=== PATIENT | male | born 1965 | race Caucasian/White ===

== ENCOUNTER 2019-01-15 01:28 | Inpatient (IN) | payer MEDICAID ==
[~2019-01-15] VITALS: Ht 188 cm; Wt 79.4 kg
--- NOTE | 2019-01-15 01:44 | Emergency Room Report ---
History of Present Illness General Chief Complaint: Edema Source: Patient, Medical Record Present Illness HPI Is a 53-year-old male story of CAD with previous stents. Also history of schizophrenia. [facility] He presents with chief complaint of swelling to the lower extremity. Staff noticed that yesterday. Pain only to the left lower extremity. Denies any other trauma. There was no noted history of DVT on the chart but patient is taking Xarelto for DVT. Allergies: Coded Allergies: No Known Allergies (Unverified , 01/15/19) Patient History Past Medical History: see triage record, old chart reviewed, HTN, IN, CAD Past Surgical History: other Pertinent Family History: none Social History: Reports: smoking Immunizations: other Reviewed Nursing Documentation: PMH: Agreed; PSxH: Agreed Review of Systems Eye: Denies: eye pain, blurred vision ENT: Denies: ear pain, nose congestion, throat swelling Respiratory: Denies: cough, shortness of breath Cardiovascular: Denies: chest pain, palpitations Gastrointestinal: Denies: abdominal pain, diarrhea, nausea, vomiting Musculoskeletal: Reports: muscle pain; Denies: back pain, joint pain Skin: Denies: rash Neurological: Denies: headache, numbness Endocrine: Denies: increased thirst, increased urine Hematologic/Lymphatic: Denies: easy bruising All Other Systems: negative except mentioned in HPI Physical Exam Vital Signs Date Time Temp Pulse Resp B/P (MAP) Pulse Ox O2 Delivery O2 Flow Rate FiO2 01/15/19 01:25 98.2 90 20 138/92 (107) 94 Room Air Vitals normal Sp02 EP Interpretation: reviewed, normal General Appearance: well appearing, no apparent distress, alert Head: normocephalic, atraumatic Eyes: bilateral eye PERRL, bilateral eye EOMI ENT: hearing grossly normal, normal pharynx Neck: full range of motion, supple, no meningismus Respiratory: chest non-tender, lungs clear, normal breath sounds Cardiovascular #1: regular rate, rhythm, no murmur Gastrointestinal: normal bowel sounds, non tender, no mass, no organomegaly, no bruit, non-distended Musculoskeletal: back normal, gait/station normal, normal range of motion, other - Edema to the left lower extremity from the calf to toes. No redness. No warmth. Psychiatric: mood/affect normal Medical Decision Making Diagnostic Impression: Primary Impression: Deep vein thrombosis (DVT) of left lower extremity Qualified Codes: I82.412 - Acute embolism and thrombosis of left femoral vein ER Course Presents with left lower extremity edema. He is positive for DVT. Patient is taking Xarelto for DVT prophylaxis. I will give him a dose of Lovenox here. No evidence of any fracture. No respiratory distress. 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
[2019-01-15 01:53] VITALS: BP 133/92
[2019-01-15] MEDS ORDERED: AMLODIPINE BESYL5 MG ORAL (01:54)
[2019-01-15] MEDS ORDERED: LISINOPRIL20 MG ORAL (01:54)
[2019-01-15] MEDS ORDERED: ATORVASTATIN CA80 MG ORAL (01:54)
[2019-01-15] MEDS ORDERED: TYLENOL EXTRA500 MG ORAL (01:54)
[2019-01-15] MEDS ORDERED: METOPROLOL SUCC50 MG ORAL (01:54)
[2019-01-15] MEDS ORDERED: FOLIC ACID1 MG ORAL (01:54)
[2019-01-15] MEDS ORDERED: LEXAPRO20 MG ORAL (01:54)
[2019-01-15] MEDS ORDERED: MULTIVITAMINS1 EAC2 ORAL (01:54)
[2019-01-15] MEDS ORDERED: DULCOLAX10 MG RC (01:54)
[2019-01-15] MEDS ORDERED: ISOSORBIDE MONO60 M1 PO (01:54)
[2019-01-15] MEDS ORDERED: MILK OF MA400 MG/51 ORAL (01:54)
[2019-01-15] MEDS ORDERED: DOCUSATE SODIU100 MG ORAL (01:54)
[2019-01-15] MEDS ORDERED: XARELTO20 MG ORAL (01:54)
[2019-01-15] MEDS ORDERED: TRAMADOL HCL50 MG ORAL (01:54)
[2019-01-15] MEDS ORDERED: HYDROCHLOROTHIA25 MG ORAL (01:54)
[2019-01-15] MEDS ORDERED: Enoxaparin 100mg Inj SUBQ ONE (02:30)
--- NOTE | 2019-01-15 02:39 | Diagnostic Imaging Report ---
Indication: Left lower extremity pain and swelling. Technique: Duplex Doppler imaging performed from the left common femoral vein to the popliteal vein. FINDINGS: There is occlusive thrombus demonstrated within the entire left superficial femoral vein, with normal compressibility of the left common femoral vein and popliteal vein. Subcutaneous edema noted. IMPRESSION: Positive study showing DVT in the left superficial femoral vein. Critical value communication. Findings were discussed via telephone with In the emergency department by the stat rad physician Dr. Loya 01/15/2019, at 02:46.
[2019-01-15 02:54] LABS: BASOPHILS % (AUTO) 0.9 % (0.0-2.0); EOSINOPHILS % (AUTO) 1.2 % (0.0-3.0); HEMATOCRIT 47.3 % (42.0-52.0); HEMOGLOBIN 16.1 G/DL (14.2-18.0); LYMPHOCYTES % (AUTO) 26.4 % (20.0-45.0); MEAN CORPUSCULAR VOLUME 89 FL (80-99); MONOCYTES % (AUTO) 8.2 % (1.0-10.0); NEUTROPHILS % (AUTO) 63.3 % (45.0-75.0); PLATELET COUNT 207 K/UL (150-450); RED BLOOD COUNT 5.34 M/UL (4.70-6.10); RED CELL DISTRIBUTION WIDTH 13.1 % (11.6-14.8); WHITE BLOOD COUNT 10.3 K/UL (4.8-10.8)
[2019-01-15 03:07] LABS: ANION GAP 10 mmol/L (5-15); BLOOD UREA NITROGEN 12 mg/dL (7-18); CALCIUM 9.8 MG/DL (8.5-10.1); CARBON DIOXIDE 25 MMOL/L (21-32); CHLORIDE 108 MMOL/L (98-107); CREATININE 0.9 MG/DL (0.55-1.30); SODIUM 143 MMOL/L (136-145)
--- NOTE | 2019-01-15 05:11 | History and Physical ---
History of Present Illness General Date patient seen: Jan 15, 2019 Time patient seen: 05:00 Reason for Hospitalization: Edema Present Illness HPI patient with known CAD with previous stents, stroke with left deficit, history of schizophrenia. [facility]. earlier call from sn[facility] and requested for new left leg swelling. He presents with chief complaint of swelling to the lower extremity. Staff noticed that yesterday. Pain only to the left lower extremity. Denies any other trauma. There was no noted history of DVT on the chart but patient is taking Xarelto for DVT.. no chest pain/dyspnea. patient does not like this snf Allergies: Coded Allergies: No Known Allergies (Unverified , 01/15/19) Medication History Scheduled Amlodipine Besylate* (Amlodipine Besylate*), 5 MG ORAL DAILY, (Reported) Atorvastatin Calcium* (Lipitor*), 80 MG ORAL BEDTIME, (Reported) Docusate Sodium* (Docusate Sodium*), 100 MG ORAL DAILY, (Reported) Escitalopram Oxalate* (Lexapro*), 20 MG ORAL DAILY, (Reported) Escitalopram Oxalate* (Lexapro*), 20 MG ORAL DAILY, (Reported) Folic Acid* (Folic Acid*), 1 MG ORAL DAILY, (Reported) Hydrochlorothiazide* (Hydrochlorothiazide*), 25 MG ORAL DAILY, (Reported) Lisinopril (Lisinopril*), 20 MG ORAL DAILY, (Reported) Magnesium Hydroxide* (Milk Of Magnesia*), 30 ML ORAL DAILY, (Reported) Metoprolol Succinate* (Metoprolol Succinate*), 50 MG ORAL DAILY, (Reported) Multivitamins* (Multivitamins*), 1 TAB ORAL DAILY, (Reported) Scheduled PRN Acetaminophen* (Tylenol Extra Strength*), 325 MG ORAL Q6H PRN for Mild Pain/ Temp > 100.5, (Reported) Tramadol Hcl* (Ultram*), 50 MG ORAL Q8HR PRN for For Pain, (Reported) Miscellaneous Medications Bisacodyl (Dulcolax), 10 MG RC, (Reported) Isosorbide Mononitrate (Isosorbide Mononitrate Er), 60 MG PO, (Reported) Rivaroxaban (Xarelto), 20 MG ORAL, (Reported) Patient History History Provided By: Patient Healthcare decision maker Resuscitation status Advanced Directive on File Review of Systems Constitutional: Reports: no symptoms Eye: Reports: no symptoms ENT: Reports: no symptoms Respiratory: Reports: no symptoms Cardiovascular: Reports: no symptoms Gastrointestinal: Reports: no symptoms Genitourinary: Reports: no symptoms Musculoskeletal: Reports: see HPI Skin: Reports: no symptoms Psychiatric: Reports: see HPI Neurological: Reports: no symptoms Endocrine: Reports: no symptoms Hematologic/Lymphatic: Reports: see HPI Physical Exam General Appearance: WD/WN, no apparent distress, alert, alert oriented x3 HEENT: normocephalic, atraumatic, anicteric, mucous membranes moist Neck: non-tender, supple Respiratory/Chest: lungs clear Cardiovascular/Chest: normal rate, regular rhythm, regularly irregular, no gallop/murmur, no JVD Abdomen: non tender, soft, no organomegaly Extremities: other Skin Exam: warm/dry Neurologic: oriented x 3, other Physical Exam Narrative left side stroke deficit. left leg swelling ++ Last 24 Hour Vital Signs Date Time Temp Pulse Resp B/P (MAP) Pulse Ox O2 Delivery O2 Flow Rate FiO2 01/15/19 01:53 98.2 90 16 133/92 96 Room Air 01/15/19 01:53 90 16 Room Air 01/15/19 01:25 98.2 90 20 138/92 (107) 94 Room Air Laboratory Tests Test 01/15/19 02:30 White Blood Count 10.3 K/UL (4.8-10.8) Red Blood Count 5.34 M/UL (4.70-6.10) Hemoglobin 16.1 G/DL (14.2-18.0) Hematocrit 47.3 % (42.0-52.0) Mean Corpuscular Volume 89 FL (80-99) Mean Corpuscular Hemoglobin 30.1 PG (27.0-31.0) Mean Corpuscular Hemoglobin Concent 33.9 G/DL (32.0-36.0) Red Cell Distribution Width 13.1 % (11.6-14.8) Platelet Count 207 K/UL (150-450) Mean Platelet Volume 7.6 FL (6.5-10.1) Neutrophils (%) (Auto) 63.3 % (45.0-75.0) Lymphocytes (%) (Auto) 26.4 % (20.0-45.0) Monocytes (%) (Auto) 8.2 % (1.0-10.0) Eosinophils (%) (Auto) 1.2 % (0.0-3.0) Basophils (%) (Auto) 0.9 % (0.0-2.0) Prothrombin Time 10.9 SEC (9.30-11.50) Prothromb Time International Ratio 1.0 (0.9-1.1) Activated Partial Thromboplast Time 33 SEC (23-33) Sodium Level 143 MMOL/L (136-145) Potassium Level 4.0 MMOL/L (3.5-5.1) Chloride Level 108 MMOL/L (98-107) H Carbon Dioxide Level 25 MMOL/L (21-32) Anion Gap 10 mmol/L (5-15) Blood Urea Nitrogen 12 mg/dL (7-18) Creatinine 0.9 MG/DL (0.55-1.30) Estimat Glomerular Filtration Rate > 60 mL/min (>60) Glucose Level 90 MG/DL (74-106) Calcium Level 9.8 MG/DL (8.5-10.1) Microbiology Date/Time Source Procedure Growth Status 01/15/19 03:25 Rectum Received Height (Feet): 6 Height (Inches): 3.00 Weight (Pounds): 228 Assessment/Plan Assessment/Plan: 1. left leg DVT- started on lovenox full dose. consider vascular consult. stop xarelto/ consider hematology consult for alternative oral meds. ? hypercoagulable. need old history 2. hx stoke with left deficit 3. hx CAD- continue home meds 4. hx schzophrenia- ?psych consult 5. hx HTN- continue meds including BB, ACEI, Amlodipine, diuretics, monitor Mika Albarado MD Jan 15, 2019 05:11
[2019-01-15 08:00] VITALS: BP 127/85
[2019-01-15] MEDS: Milk of Magnesia 30ml Ud ORAL SCH (08:32)
[2019-01-15] MEDS: Metoprolol Succinate XL 50mg tab ORAL SCH (08:33)
[2019-01-15] MEDS: Lisinopril 20mg tab ORAL SCH (08:33)
[2019-01-15] MEDS: Imdur 30mg tab ORAL SCH (08:33)
[2019-01-15] MEDS: Docusate 100mg cap ORAL SCH (08:33)
--- NOTE | 2019-01-15 09:35 | Consultation ---
History of Present Illness General Chief Complaint: Edema Present Illness Allergies: Coded Allergies: No Known Allergies (Unverified , 01/15/19) Medication History Scheduled Amlodipine Besylate* (Amlodipine Besylate*), 5 MG ORAL DAILY, (Reported) Atorvastatin Calcium* (Lipitor*), 80 MG ORAL BEDTIME, (Reported) Docusate Sodium* (Docusate Sodium*), 100 MG ORAL DAILY, (Reported) Escitalopram Oxalate* (Lexapro*), 20 MG ORAL DAILY, (Reported) Escitalopram Oxalate* (Lexapro*), 20 MG ORAL DAILY, (Reported) Folic Acid* (Folic Acid*), 1 MG ORAL DAILY, (Reported) Hydrochlorothiazide* (Hydrochlorothiazide*), 25 MG ORAL DAILY, (Reported) Lisinopril (Lisinopril*), 20 MG ORAL DAILY, (Reported) Magnesium Hydroxide* (Milk Of Magnesia*), 30 ML ORAL DAILY, (Reported) Metoprolol Succinate* (Metoprolol Succinate*), 50 MG ORAL DAILY, (Reported) Multivitamins* (Multivitamins*), 1 TAB ORAL DAILY, (Reported) Scheduled PRN Acetaminophen* (Tylenol Extra Strength*), 325 MG ORAL Q6H PRN for Mild Pain/ Temp > 100.5, (Reported) Tramadol Hcl* (Ultram*), 50 MG ORAL Q8HR PRN for For Pain, (Reported) Miscellaneous Medications Bisacodyl (Dulcolax), 10 MG RC, (Reported) Isosorbide Mononitrate (Isosorbide Mononitrate Er), 60 MG PO, (Reported) Rivaroxaban (Xarelto), 20 MG ORAL, (Reported) Patient History Healthcare decision maker Resuscitation status Full Code Advanced Directive on File No Physical Exam Last 24 Hour Vital Signs Date Time Temp Pulse Resp B/P (MAP) Pulse Ox O2 Delivery O2 Flow Rate FiO2 01/15/19 08:33 127/85 01/15/19 08:33 100 127/85 01/15/19 08:33 127/85 01/15/19 08:32 100 127/85 01/15/19 08:00 97.6 100 20 127/85 (99) 98 01/15/19 04:26 Room Air 01/15/19 03:30 98.9 92 17 132/89 95 Room Air 01/15/19 01:53 98.2 90 16 133/92 96 Room Air 01/15/19 01:53 90 16 Room Air 01/15/19 01:25 98.2 90 20 138/92 (107) 94 Room Air Intake and Output 01/14/19 01/15/19 19:00 07:00 # Voids 1 Laboratory Tests Test 01/15/19 02:30 White Blood Count 10.3 K/UL (4.8-10.8) Red Blood Count 5.34 M/UL (4.70-6.10) Hemoglobin 16.1 G/DL (14.2-18.0) Hematocrit 47.3 % (42.0-52.0) Mean Corpuscular Volume 89 FL (80-99) Mean Corpuscular Hemoglobin 30.1 PG (27.0-31.0) Mean Corpuscular Hemoglobin Concent 33.9 G/DL (32.0-36.0) Red Cell Distribution Width 13.1 % (11.6-14.8) Platelet Count 207 K/UL (150-450) Mean Platelet Volume 7.6 FL (6.5-10.1) Neutrophils (%) (Auto) 63.3 % (45.0-75.0) Lymphocytes (%) (Auto) 26.4 % (20.0-45.0) Monocytes (%) (Auto) 8.2 % (1.0-10.0) Eosinophils (%) (Auto) 1.2 % (0.0-3.0) Basophils (%) (Auto) 0.9 % (0.0-2.0) Prothrombin Time 10.9 SEC (9.30-11.50) Prothromb Time International Ratio 1.0 (0.9-1.1) Activated Partial Thromboplast Time 33 SEC (23-33) Sodium Level 143 MMOL/L (136-145) Potassium Level 4.0 MMOL/L (3.5-5.1) Chloride Level 108 MMOL/L (98-107) H Carbon Dioxide Level 25 MMOL/L (21-32) Anion Gap 10 mmol/L (5-15) Blood Urea Nitrogen 12 mg/dL (7-18) Creatinine 0.9 MG/DL (0.55-1.30) Estimat Glomerular Filtration Rate > 60 mL/min (>60) Glucose Level 90 MG/DL (74-106) Calcium Level 9.8 MG/DL (8.5-10.1) Microbiology Date/Time Source Procedure Growth Status 01/15/19 03:25 Rectum Received Height (Feet): 6 Height (Inches): 2.00 Weight (Pounds): 177 Medications Current Medications Medications (Trade) Dose Ordered Sig/May Route PRN Reason Start Time Stop Time Status Last Admin Dose Admin Acetaminophen (Tylenol) 650 mg Q6H PRN ORAL Mild Pain/Temp > 100.5 01/15/19 05:45 02/14/19 05:44 Amlodipine Besylate (Norvasc) 5 mg DAILY ORAL 01/15/19 09:00 02/14/19 08:59 01/15/19 08:32 Atorvastatin Calcium (Lipitor) 80 mg BEDTIME ORAL 01/15/19 21:00 02/14/19 20:59 Bisacodyl (Dulcolax) 10 mg NEEDED PRN RECTAL Constipation 01/15/19 05:00 02/14/19 04:59 Docusate Sodium (Colace) 100 mg DAILY ORAL 01/15/19 09:00 02/14/19 08:59 01/15/19 08:33 Enoxaparin Sodium (Lovenox) 80 mg EVERY 12 HOURS SUBQ 01/15/19 11:00 02/14/19 10:59 Escitalopram Oxalate (Lexapro) 20 mg DAILY ORAL 01/15/19 09:00 02/14/19 08:59 01/15/19 08:32 Folic Acid (Folate) 1 mg DAILY ORAL 01/15/19 09:00 02/14/19 08:59 01/15/19 08:32 Hydrochlorothiazide (Hydrodiuril) 25 mg DAILY ORAL 01/15/19 09:00 02/14/19 08:59 01/15/19 08:33 Isosorbide Mononitrate (Imdur) 60 mg DAILY ORAL 01/15/19 09:00 02/14/19 08:59 01/15/19 08:33 Lisinopril (Prinivil) 20 mg DAILY ORAL 01/15/19 09:00 02/14/19 08:59 01/15/19 08:33 Magnesium Hydroxide (Mom) 30 ml DAILY ORAL 01/15/19 09:00 02/14/19 08:59 01/15/19 08:32 Metoprolol Succinate (Toprol XL) 50 mg DAILY ORAL 01/15/19 09:00 02/14/19 08:59 01/15/19 08:33 Multivitamins (Multivitamins) 1 tab DAILY ORAL 01/15/19 09:00 02/14/19 08:59 01/15/19 08:32 Assessment/Plan Assessment/Plan: Hematology Consutlation ISABELA MD: Earlene Time patient seen: 800a DOS: 01/15/19 RFC: DVT of the left lower ext Reason for Hospitalization: Edema ID 53y old patient with known CAD with previous stents, stroke with left deficit, history of schizophrenia. He was just admitted to the skilled nursing over a week ago. earlier call from snf and requested for new left leg swelling. He presents with chief complaint of swelling to the lower extremity. Staff noticed that yesterday. Pain only to the left lower extremity. Denies any other trauma. There was no noted history of DVT on the chart but patient is taking Xarelto for DVT. No chest pain/dyspnea. patient does not like this snf Was called by Dr. Beavers to see him. Allergies: No Known Allergies (Unverified , 01/15/19) Medications Scheduled Amlodipine Besylate* (Amlodipine Besylate*), 5 MG ORAL DAILY, (Reported) Atorvastatin Calcium* (Lipitor*), 80 MG ORAL BEDTIME, (Reported) Docusate Sodium* (Docusate Sodium*), 100 MG ORAL DAILY, (Reported) Escitalopram Oxalate* (Lexapro*), 20 MG ORAL DAILY, (Reported) Escitalopram Oxalate* (Lexapro*), 20 MG ORAL DAILY, (Reported) Folic Acid* (Folic Acid*), 1 MG ORAL DAILY, (Reported) Hydrochlorothiazide* (Hydrochlorothiazide*), 25 MG ORAL DAILY, (Reported) Lisinopril (Lisinopril*), 20 MG ORAL DAILY, (Reported) Magnesium Hydroxide* (Milk Of Magnesia*), 30 ML ORAL DAILY, (Reported) Metoprolol Succinate* (Metoprolol Succinate*), 50 MG ORAL DAILY, (Reported) Multivitamins* (Multivitamins*), 1 TAB ORAL DAILY, (Reported) Scheduled PRN Acetaminophen* (Tylenol Extra Strength*), 325 MG ORAL Q6H PRN for Mild Pain/ Temp > 100.5, (Reported) Tramadol Hcl* (Ultram*), 50 MG ORAL Q8HR PRN for For Pain, (Reported) Miscellaneous Medications Bisacodyl (Dulcolax), 10 MG RC, (Reported) Isosorbide Mononitrate (Isosorbide Mononitrate Er), 60 MG PO, (Reported) Rivaroxaban (Xarelto), 20 MG ORAL, (Reported) Patient History History Provided By: Patient Healthcare decision maker Resuscitation status Advanced Directive on File Review of Systems Constitutional: Reports: no symptoms Eye: Reports: no symptoms ENT: Reports: no symptoms Respiratory: Reports: no symptoms Cardiovascular: Reports: no symptoms Gastrointestinal: Reports: no symptoms Genitourinary: Reports: no symptoms Musculoskeletal: Reports: see HPI Skin: Reports: no symptoms Endocrine: Reports: no symptoms Hematologic/Lymphatic: Reports: see HPI Physical Exam Gen: WD/WN, alert oriented x3 HEENT: normocephalic, atraumatic, anicteric, mucous membranes moist Chest: lungs clear CV: normal rate, regular rhythm, regularly irregular Abdomen: non tender, soft, no organomegaly Extremities: other Skin Exam: warm/dry left leg swelling ++ Labs: noted Imaging: noted Assessment/Recs # Left leg DVT- started on lovenox full dose. Consider vascular consult. stop xarelto. ?hypercoagulable. need old history --> at this time, continue lovenox sq bid --> okay to start on eliquis as well given it is a alternative noac --> no exacerbating factors besides immobility --> continue to monitor for progression, for symptoms, sob, cp, right leg swelling --> consider age appropriate cancer screening with psa and colo prn >50y old # hx stoke with left deficit --> neuro prn # hx CAD- continue home meds # hx schzophrenia- ?psych consult # hx HTN- continue meds --> BB, ACEI, Amlodipine, diuretics, monitor # Dvt ppx with lovenox for now Time of note does not correspond to time patient was seen. Greatly appreciate consultation. Nas Palacios MD Jan 15, 2019 09:35
--- NOTE | 2019-01-15 10:27 | History and Physical ---
History of Present Illness General Reason for Hospitalization: Edema Present Illness Allergies: Coded Allergies: No Known Allergies (Unverified , 01/15/19) Medication History Scheduled Amlodipine Besylate* (Amlodipine Besylate*), 5 MG ORAL DAILY, (Reported) Atorvastatin Calcium* (Lipitor*), 80 MG ORAL BEDTIME, (Reported) Docusate Sodium* (Docusate Sodium*), 100 MG ORAL DAILY, (Reported) Escitalopram Oxalate* (Lexapro*), 20 MG ORAL DAILY, (Reported) Escitalopram Oxalate* (Lexapro*), 20 MG ORAL DAILY, (Reported) Folic Acid* (Folic Acid*), 1 MG ORAL DAILY, (Reported) Hydrochlorothiazide* (Hydrochlorothiazide*), 25 MG ORAL DAILY, (Reported) Lisinopril (Lisinopril*), 20 MG ORAL DAILY, (Reported) Magnesium Hydroxide* (Milk Of Magnesia*), 30 ML ORAL DAILY, (Reported) Metoprolol Succinate* (Metoprolol Succinate*), 50 MG ORAL DAILY, (Reported) Multivitamins* (Multivitamins*), 1 TAB ORAL DAILY, (Reported) Scheduled PRN Acetaminophen* (Tylenol Extra Strength*), 325 MG ORAL Q6H PRN for Mild Pain/ Temp > 100.5, (Reported) Tramadol Hcl* (Ultram*), 50 MG ORAL Q8HR PRN for For Pain, (Reported) Miscellaneous Medications Bisacodyl (Dulcolax), 10 MG RC, (Reported) Isosorbide Mononitrate (Isosorbide Mononitrate Er), 60 MG PO, (Reported) Rivaroxaban (Xarelto), 20 MG ORAL, (Reported) Patient History Healthcare decision maker Resuscitation status Full Code Advanced Directive on File No Physical Exam Last 24 Hour Vital Signs Date Time Temp Pulse Resp B/P (MAP) Pulse Ox O2 Delivery O2 Flow Rate FiO2 01/15/19 08:33 127/85 01/15/19 08:33 100 127/85 01/15/19 08:33 127/85 01/15/19 08:32 100 127/85 01/15/19 08:00 97.6 100 20 127/85 (99) 98 01/15/19 04:26 Room Air 01/15/19 03:30 98.9 92 17 132/89 95 Room Air 01/15/19 01:53 98.2 90 16 133/92 96 Room Air 01/15/19 01:53 90 16 Room Air 01/15/19 01:25 98.2 90 20 138/92 (107) 94 Room Air Intake and Output 01/14/19 01/15/19 19:00 07:00 # Voids 1 Laboratory Tests Test 01/15/19 02:30 White Blood Count 10.3 K/UL (4.8-10.8) Red Blood Count 5.34 M/UL (4.70-6.10) Hemoglobin 16.1 G/DL (14.2-18.0) Hematocrit 47.3 % (42.0-52.0) Mean Corpuscular Volume 89 FL (80-99) Mean Corpuscular Hemoglobin 30.1 PG (27.0-31.0) Mean Corpuscular Hemoglobin Concent 33.9 G/DL (32.0-36.0) Red Cell Distribution Width 13.1 % (11.6-14.8) Platelet Count 207 K/UL (150-450) Mean Platelet Volume 7.6 FL (6.5-10.1) Neutrophils (%) (Auto) 63.3 % (45.0-75.0) Lymphocytes (%) (Auto) 26.4 % (20.0-45.0) Monocytes (%) (Auto) 8.2 % (1.0-10.0) Eosinophils (%) (Auto) 1.2 % (0.0-3.0) Basophils (%) (Auto) 0.9 % (0.0-2.0) Prothrombin Time 10.9 SEC (9.30-11.50) Prothromb Time International Ratio 1.0 (0.9-1.1) Activated Partial Thromboplast Time 33 SEC (23-33) Sodium Level 143 MMOL/L (136-145) Potassium Level 4.0 MMOL/L (3.5-5.1) Chloride Level 108 MMOL/L (98-107) H Carbon Dioxide Level 25 MMOL/L (21-32) Anion Gap 10 mmol/L (5-15) Blood Urea Nitrogen 12 mg/dL (7-18) Creatinine 0.9 MG/DL (0.55-1.30) Estimat Glomerular Filtration Rate > 60 mL/min (>60) Glucose Level 90 MG/DL (74-106) Calcium Level 9.8 MG/DL (8.5-10.1) Microbiology Date/Time Source Procedure Growth Status 01/15/19 03:25 Rectum Received Height (Feet): 6 Height (Inches): 2.00 Weight (Pounds): 177 Medications Current Medications Medications (Trade) Dose Ordered Sig/May Route PRN Reason Start Time Stop Time Status Last Admin Dose Admin Acetaminophen (Tylenol) 650 mg Q6H PRN ORAL Mild Pain/Temp > 100.5 01/15/19 05:45 02/14/19 05:44 Amlodipine Besylate (Norvasc) 5 mg DAILY ORAL 01/15/19 09:00 02/14/19 08:59 01/15/19 08:32 Atorvastatin Calcium (Lipitor) 80 mg BEDTIME ORAL 01/15/19 21:00 02/14/19 20:59 Bisacodyl (Dulcolax) 10 mg NEEDED PRN RECTAL Constipation 01/15/19 05:00 02/14/19 04:59 Docusate Sodium (Colace) 100 mg DAILY ORAL 01/15/19 09:00 02/14/19 08:59 01/15/19 08:33 Enoxaparin Sodium (Lovenox) 80 mg EVERY 12 HOURS SUBQ 01/15/19 11:00 02/14/19 10:59 Escitalopram Oxalate (Lexapro) 20 mg DAILY ORAL 01/15/19 09:00 02/14/19 08:59 01/15/19 08:32 Folic Acid (Folate) 1 mg DAILY ORAL 01/15/19 09:00 02/14/19 08:59 01/15/19 08:32 Hydrochlorothiazide (Hydrodiuril) 25 mg DAILY ORAL 01/15/19 09:00 02/14/19 08:59 01/15/19 08:33 Isosorbide Mononitrate (Imdur) 60 mg DAILY ORAL 01/15/19 09:00 02/14/19 08:59 01/15/19 08:33 Lisinopril (Prinivil) 20 mg DAILY ORAL 01/15/19 09:00 02/14/19 08:59 01/15/19 08:33 Magnesium Hydroxide (Mom) 30 ml DAILY ORAL 01/15/19 09:00 02/14/19 08:59 01/15/19 08:32 Metoprolol Succinate (Toprol XL) 50 mg DAILY ORAL 01/15/19 09:00 02/14/19 08:59 01/15/19 08:33 Multivitamins (Multivitamins) 1 tab DAILY ORAL 01/15/19 09:00 02/14/19 08:59 01/15/19 08:32 Nimesh Torre M.D. Jan 15, 2019 10:26
--- NOTE | 2019-01-15 10:31 | General Progress Note ---
Subjective Allergies: Coded Allergies: No Known Allergies (Unverified , 01/15/19) Objective Last 24 Hour Vital Signs Date Time Temp Pulse Resp B/P (MAP) Pulse Ox O2 Delivery O2 Flow Rate FiO2 01/15/19 08:33 127/85 01/15/19 08:33 100 127/85 01/15/19 08:33 127/85 01/15/19 08:32 100 127/85 01/15/19 08:00 97.6 100 20 127/85 (99) 98 01/15/19 04:26 Room Air 01/15/19 03:30 98.9 92 17 132/89 95 Room Air 01/15/19 01:53 98.2 90 16 133/92 96 Room Air 01/15/19 01:53 90 16 Room Air 01/15/19 01:25 98.2 90 20 138/92 (107) 94 Room Air Intake and Output 01/14/19 01/15/19 18:59 06:59 # Voids 1 Laboratory Tests 01/15/19 02:30: White Blood Count 10.3, Red Blood Count 5.34, Hemoglobin 16.1, Hematocrit 47.3, Mean Corpuscular Volume 89, Mean Corpuscular Hemoglobin 30.1, Mean Corpuscular Hemoglobin Concent 33.9, Red Cell Distribution Width 13.1, Platelet Count 207, Mean Platelet Volume 7.6, Neutrophils (%) (Auto) 63.3, Lymphocytes (%) (Auto) 26.4, Monocytes (%) (Auto) 8.2, Eosinophils (%) (Auto) 1.2, Basophils (%) (Auto ) 0.9, Prothrombin Time 10.9, Prothromb Time International Ratio 1.0, Activated Partial Thromboplast Time 33, Sodium Level 143, Potassium Level 4.0, Chloride Level 108H, Carbon Dioxide Level 25, Anion Gap 10, Blood Urea Nitrogen 12, Creatinine 0.9, Estimat Glomerular Filtration Rate > 60, Glucose Level 90, Calcium Level 9.8 Height (Feet): 6 Height (Inches): 2.00 Weight (Pounds): 177 Nimesh Torre M.D. Jan 15, 2019 10:31
--- NOTE | 2019-01-15 10:47 | Diagnostic Imaging Report ---
Indication: Foot pain Comparison: None Findings: 2 views of the left foot were obtained. Please limited especially in the hindfoot. No lateral view was obtained. The visualized part of the midfoot and the forefoot show no obvious fracture, erosion or malalignment. IMPRESSION: Limited evaluation. No acute injury identified
[2019-01-15 12:00] VITALS: BP 131/80
[2019-01-15] MEDS: Enoxaparin 80mg Inj SUBQ SCH ×2 (12:00→21:00)
[2019-01-15 16:49] VITALS: BP 106/70
[2019-01-15 20:00] VITALS: BP 101/60
[2019-01-15] MEDS: Atorvastatin 80mg tab ORAL SCH (21:00)
[2019-01-16] VITALS: BP 107/59
[2019-01-16 04:00] VITALS: BP 108/70
--- NOTE | 2019-01-16 06:08 | Hematology/Onc Progress Note ---
Assessment/Plan Assessment/Plan Assessment/Recs # Left leg DVT- started on lovenox full dose. Consider vascular consult. stop xarelto. ?hypercoagulable. need old history, also in the past had been on coumadin but does not know why he is now off of it --> initially started on lovenox but since noncompliant --> HAVE CHANGED TO ELIQUIS --> no exacerbating factors besides immobility --> continue to monitor for progression, for symptoms, sob, cp, right leg swelling --> consider age appropriate cancer screening with psa and colo prn >50y old --> VERY Noncompliant with meds # hx stoke with left deficit --> neuro prn # hx CAD- continue home meds # hx schzophrenia- ?psych consult # hx HTN- continue meds --> BB, ACEI, Amlodipine, diuretics, monitor # Dvt ppx with eliquis # Noncompliant/combative attitude Time of note does not correspond to time patient was seen. Greatly appreciate consultation. Subjective Constitutional: Denies: no symptoms, chills, fever, malaise, weakness, other HEENT: Denies: no symptoms, eye pain, blurred vision, tearing, double vision, ear pain, ear discharge, nose pain, nose congestion, throat pain, throat swelling, mouth pain, mouth swelling, other Cardiovascular: Denies: no symptoms, chest pain, edema, irregular heart rate, lightheadedness, palpitations, syncope, other Respiratory: Denies: no symptoms, cough, shortness of breath, SOB with excertion, SOB at rest, sputum, wheezing, other Gastrointestinal/Abdominal: Denies: no symptoms, abdomen distended, abdominal pain, black stools, tarry stools, blood in stool, constipated, diarrhea, difficulty swallowing, nausea, poor appetite, poor fluid intake, rectal bleeding , vomiting, other Genitourinary: Denies: no symptoms, burning, discharge, frequency, flank pain, hematuria, incontinence, pain, urgency, other Neurologic/Psychiatric: Denies: no symptoms, anxiety, depressed, emotional problems, headache, numbness, paresthesia, pre-existing deficit, seizure, tingling, tremors, weakness, other Allergies: Coded Allergies: No Known Allergies (Unverified , 01/15/19) Subjective 9/24: overnight abusive to RNs, yelling, screaming, refusing lovenox Objective Objective Current Medications Medications (Trade) Dose Ordered Sig/May Route PRN Reason Start Time Stop Time Status Last Admin Dose Admin Acetaminophen (Tylenol) 650 mg Q6H PRN ORAL Mild Pain/Temp > 100.5 01/15/19 05:45 02/14/19 05:44 Amlodipine Besylate (Norvasc) 5 mg DAILY ORAL 01/15/19 09:00 02/14/19 08:59 01/15/19 08:32 Atorvastatin Calcium (Lipitor) 80 mg BEDTIME ORAL 01/15/19 21:00 02/14/19 20:59 Bisacodyl (Dulcolax) 10 mg NEEDED PRN RECTAL Constipation 01/15/19 05:00 02/14/19 04:59 Docusate Sodium (Colace) 100 mg DAILY ORAL 01/15/19 09:00 02/14/19 08:59 01/15/19 08:33 Enoxaparin Sodium (Lovenox) 80 mg EVERY 12 HOURS SUBQ 01/15/19 11:00 02/14/19 10:59 Escitalopram Oxalate (Lexapro) 20 mg DAILY ORAL 01/15/19 09:00 02/14/19 08:59 01/15/19 08:32 Folic Acid (Folate) 1 mg DAILY ORAL 01/15/19 09:00 02/14/19 08:59 01/15/19 08:32 Hydrochlorothiazide (Hydrodiuril) 25 mg DAILY ORAL 01/15/19 09:00 02/14/19 08:59 01/15/19 08:33 Isosorbide Mononitrate (Imdur) 60 mg DAILY ORAL 01/15/19 09:00 02/14/19 08:59 01/15/19 08:33 Lisinopril (Prinivil) 20 mg DAILY ORAL 01/15/19 09:00 02/14/19 08:59 01/15/19 08:33 Magnesium Hydroxide (Mom) 30 ml DAILY ORAL 01/15/19 09:00 02/14/19 08:59 01/15/19 08:32 Metoprolol Succinate (Toprol XL) 50 mg DAILY ORAL 01/15/19 09:00 02/14/19 08:59 01/15/19 08:33 Multivitamins (Multivitamins) 1 tab DAILY ORAL 01/15/19 09:00 02/14/19 08:59 01/15/19 08:32 Last 24 Hour Vital Signs Date Time Temp Pulse Resp B/P (MAP) Pulse Ox O2 Delivery O2 Flow Rate FiO2 01/16/19 00:00 98.1 62 20 107/59 (75) 97 01/15/19 21:00 Room Air 01/15/19 20:00 97.8 66 20 101/60 (74) 98 01/15/19 16:49 98.0 96 19 106/70 (82) 97 01/15/19 12:00 98.0 96 19 131/80 (97) 97 01/15/19 09:00 Room Air 01/15/19 08:33 127/85 01/15/19 08:33 100 127/85 01/15/19 08:33 127/85 01/15/19 08:32 100 127/85 01/15/19 08:00 97.6 100 20 127/85 (99) 98 01/15/19 04:26 Room Air 01/15/19 03:30 98.9 92 17 132/89 95 Room Air 01/15/19 01:53 98.2 90 16 133/92 96 Room Air 01/15/19 01:53 90 16 Room Air 01/15/19 01:25 98.2 90 20 138/92 (107) 94 Room Air Intake and Output 01/15/19 01/16/19 19:00 07:00 Intake Total 640 ml Output Total 250 ml Balance 390 ml Intake Oral 640 ml Output Urine Total 250 ml # Voids 3 Labs Test 01/15/19 02:30 White Blood Count 10.3 K/UL (4.8-10.8) Red Blood Count 5.34 M/UL (4.70-6.10) Hemoglobin 16.1 G/DL (14.2-18.0) Hematocrit 47.3 % (42.0-52.0) Mean Corpuscular Volume 89 FL (80-99) Mean Corpuscular Hemoglobin 30.1 PG (27.0-31.0) Mean Corpuscular Hemoglobin Concent 33.9 G/DL (32.0-36.0) Red Cell Distribution Width 13.1 % (11.6-14.8) Platelet Count 207 K/UL (150-450) Mean Platelet Volume 7.6 FL (6.5-10.1) Neutrophils (%) (Auto) 63.3 % (45.0-75.0) Lymphocytes (%) (Auto) 26.4 % (20.0-45.0) Monocytes (%) (Auto) 8.2 % (1.0-10.0) Eosinophils (%) (Auto) 1.2 % (0.0-3.0) Basophils (%) (Auto) 0.9 % (0.0-2.0) Prothrombin Time 10.9 SEC (9.30-11.50) Prothromb Time International Ratio 1.0 (0.9-1.1) Activated Partial Thromboplast Time 33 SEC (23-33) Sodium Level 143 MMOL/L (136-145) Potassium Level 4.0 MMOL/L (3.5-5.1) Chloride Level 108 MMOL/L (98-107) Carbon Dioxide Level 25 MMOL/L (21-32) Anion Gap 10 mmol/L (5-15) Blood Urea Nitrogen 12 mg/dL (7-18) Creatinine 0.9 MG/DL (0.55-1.30) Estimat Glomerular Filtration Rate > 60 mL/min (>60) Glucose Level 90 MG/DL (74-106) Calcium Level 9.8 MG/DL (8.5-10.1) Height (Feet): 6 Height (Inches): 2.00 Weight (Pounds): 177 Objective Physical Exam Gen: WD/WN, alert oriented x3 HEENT: normocephalic, atraumatic, anicteric, mucous membranes moist Chest: lungs clear CV: normal rate, regular rhythm, regularly irregular Abdomen: non tender, soft, no organomegaly Extremities: other Skin Exam: warm/dry left leg swelling ++ Nas Palacios MD Jan 16, 2019 06:08
[2019-01-16 08:00] VITALS: BP 111/70
[2019-01-16] MEDS: Imdur 30mg tab ORAL SCH (08:46)
[2019-01-16] MEDS: Docusate 100mg cap ORAL SCH (08:46)
[2019-01-16] MEDS: Lisinopril 20mg tab ORAL SCH (08:46)
[2019-01-16] MEDS: Eliquis 5mg tablet ORAL SCH ×2 (08:47→17:23)
[2019-01-16] MEDS: Milk of Magnesia 30ml Ud ORAL SCH (08:47)
[2019-01-16] MEDS: Metoprolol Succinate XL 50mg tab ORAL SCH (08:47)
--- NOTE | 2019-01-16 10:10 | General Progress Note ---
Assessment/Plan Status: stable Assessment/Plan: 53 year old with schizophrenia, HTN, CAD, and DVT admitted for left lower extremity DVT. 1. Left lower extremity DVT He was on full dose lovenox, he refused taking it. He also refuses to take his oral medications (I'm assuming he was refusing Xarelto at the SNF), very non compliant with medications here Changed to Eliquis Age appropriate cancer screening at discharge with PCP Hematology consult appreciated 2. History of stoke with left deficit, neuro prn 3. history of CAD- continue home meds 4. schizophrenia. Psychiatry consult appreciated, Syed ordered. Very combative and non compliant with medications. Better today and improving. 5.HTN- continue meds, BB, ACEI, Amlodipine, diuretics, monitor VTE ppx with eliquis, encourage ambulation Spoke to TATI Licona, patient has a brother names Suraj Sanchez [phone], [phone]. Patient previously resided in [facility]. [place] panning: Back to [place] 1-2 days I spent 40 minutes on this encounter. >50% spent on counselling and care coordination. Time of note may not correspond to time patient was seen. Subjective Date patient seen: Jan 16, 2019 ROS Limited/Unobtainable: Yes Allergies: Coded Allergies: No Known Allergies (Unverified , 01/15/19) Subjective calm, but inappropriate does not answer questions appropriately ?masturbating under the blanket seen by psychiatry Objective Last 24 Hour Vital Signs Date Time Temp Pulse Resp B/P (MAP) Pulse Ox O2 Delivery O2 Flow Rate FiO2 01/16/19 08:47 61 111/70 01/16/19 08:46 111/70 01/16/19 08:46 111/70 01/16/19 08:46 61 111/70 01/16/19 08:00 97.7 61 19 111/70 (84) 96 01/16/19 04:00 97.6 56 18 108/70 (83) 95 01/16/19 00:00 98.1 62 20 107/59 (75) 97 01/15/19 21:00 Room Air 01/15/19 20:00 97.8 66 20 101/60 (74) 98 01/15/19 16:49 98.0 96 19 106/70 (82) 97 01/15/19 12:00 98.0 96 19 131/80 (97) 97 Intake and Output 01/15/19 01/16/19 19:00 07:00 Intake Total 640 ml Output Total 250 ml 600 ml Balance 390 ml -600 ml Intake Oral 640 ml Output Urine Total 250 ml 600 ml # Voids 3 # Bowel Movements 2 Height (Feet): 6 Height (Inches): 2.00 Weight (Pounds): 177 Objective General Appearance: well appearing, no apparent distress, alert Head: normocephalic, atraumatic Eyes: bilateral eye PERRL, bilateral eye EOMI ENT: hearing grossly normal, normal pharynx Neck: full range of motion, supple, no meningismus Respiratory: chest non-tender, lungs clear, normal breath sounds Cardiovascular: regular rate, rhythm, no murmur Gastrointestinal: normal bowel sounds, non tender, no mass, no organomegaly, no bruit, non-distended Musculoskeletal: Edema to the left lower extremity from the calf to toes. No redness. No warmth. Psychiatric: mood/affect flat Nimesh Torre M.D. Jan 16, 2019 10:10
[2019-01-16] MEDS ORDERED: Haloperidol 5mg/ml Inj IM PRN (10:15)
[2019-01-16] MEDS: Haloperidol Decanoate (Long Acting) 50mg Inj IM SCH ×2 (10:30→11:35)
[2019-01-16 12:00] VITALS: BP 94/68
[2019-01-16] MEDS ORDERED: LORazepam 1mg tab ORAL PRN (12:00)
[2019-01-16 16:00] VITALS: BP 101/69
[2019-01-16 20:00] VITALS: BP 110/59
[2019-01-16] MEDS: Atorvastatin 80mg tab ORAL SCH (21:21)
--- NOTE | 2019-01-16 22:45 | Progress Note ---
DATE: 01/16/2019 SUBJECTIVE: The patient is refusing care, uncooperative. States that he has history of schizophrenia and drug use. When this physician came out of the room to document on the computer, the patient could see this physician from his room and started masturbating. The patient is inappropriate, disruptive on the unit. MENTAL STATUS EXAMINATION: Alert, oriented x3. Mood is agitated. Affect is flat. Thought process concrete. Thought content, no suicidal or homicidal ideation. the patient is delusional. Insight and judgment is poor. ASSESSMENT: 1. Schizophrenia by history. 2. Aggressive behavior. PLAN: 1. We will start the patient on Depakote 500 mg b.i.d. 2. Continue the risperidone 2 mg at bedtime. 3. The patient refused Haldol Decanoate today. Latanya Madrid M.D. DR: RODERICK JOB#: [id number] CC: ADONAY
[2019-01-17] VITALS: BP 112/60
[2019-01-17 04:00] VITALS: BP 108/60
[2019-01-17 08:00] VITALS: BP 95/60
--- NOTE | 2019-01-17 08:52 | Hematology/Onc Progress Note ---
Assessment/Plan Assessment/Plan Assessment/Recs # Left leg DVT- started on lovenox full dose. Consider vascular consult. stop xarelto. ?hypercoagulable. need old history, also in the past had been on coumadin but does not know why he is now off of it --> initially started on lovenox but since noncompliant --> HAVE CHANGED TO ELIQUIS --> no exacerbating factors besides immobility --> continue to monitor for progression, for symptoms, sob, cp, right leg swelling --> consider age appropriate cancer screening with psa and colo prn >50y old --> VERY Noncompliant with meds # hx stroke with left deficit --> neuro prn # hx CAD- continue home meds # hx schizophrenia- ?psych consult # hx HTN- continue meds --> BB, ACEI, Amlodipine, diuretics, monitor # Dvt ppx with eliquis # Noncompliant/combative attitude Time of note does not correspond to time patient was seen. Greatly appreciate consultation. Subjective Allergies: Coded Allergies: No Known Allergies (Unverified , 01/15/19) Subjective 01/16: overnight abusive to RNs, yelling, screaming, refusing lovenox 01/17: no acute events, uncooperative, refusing treatment and care Objective Objective Current Medications Medications (Trade) Dose Ordered Sig/May Route PRN Reason Start Time Stop Time Status Last Admin Dose Admin Acetaminophen (Tylenol) 650 mg Q6H PRN ORAL Mild Pain/Temp > 100.5 01/15/19 05:45 02/14/19 05:44 Amlodipine Besylate (Norvasc) 5 mg DAILY ORAL 01/15/19 09:00 02/14/19 08:59 01/16/19 08:46 Apixaban (Eliquis) 5 mg BID ORAL 01/16/19 09:00 02/15/19 08:59 01/16/19 17:23 Atorvastatin Calcium (Lipitor) 80 mg BEDTIME ORAL 01/15/19 21:00 02/14/19 20:59 01/16/19 21:21 Bisacodyl (Dulcolax) 10 mg NEEDED PRN RECTAL Constipation 01/15/19 05:00 02/14/19 04:59 Divalproex Sodium (Depakote) 500 mg EVERY 12 HOURS ORAL 01/17/19 09:00 02/16/19 08:59 Docusate Sodium (Colace) 100 mg DAILY ORAL 01/15/19 09:00 02/14/19 08:59 01/16/19 08:46 Escitalopram Oxalate (Lexapro) 20 mg DAILY ORAL 01/15/19 09:00 02/14/19 08:59 01/16/19 08:47 Folic Acid (Folate) 1 mg DAILY ORAL 01/15/19 09:00 02/14/19 08:59 01/16/19 08:47 Haloperidol Lactate (Haldol) 5 mg Q6H PRN IM Agitation 01/16/19 10:15 02/15/19 10:14 Hydrochlorothiazide (Hydrodiuril) 25 mg DAILY ORAL 01/15/19 09:00 02/14/19 08:59 01/16/19 08:47 Isosorbide Mononitrate (Imdur) 60 mg DAILY ORAL 01/15/19 09:00 02/14/19 08:59 01/16/19 08:46 Lisinopril (Prinivil) 20 mg DAILY ORAL 01/15/19 09:00 02/14/19 08:59 01/16/19 08:46 Lorazepam (Ativan) 1 mg Q6H PRN ORAL For Anxiety 01/16/19 12:00 01/23/19 11:59 01/16/19 12:39 Magnesium Hydroxide (Mom) 30 ml DAILY ORAL 01/15/19 09:00 02/14/19 08:59 01/16/19 08:47 Metoprolol Succinate (Toprol XL) 50 mg DAILY ORAL 01/15/19 09:00 02/14/19 08:59 01/16/19 08:47 Multivitamins (Multivitamins) 1 tab DAILY ORAL 01/15/19 09:00 02/14/19 08:59 01/16/19 08:46 Risperidone (RisperDAL) 2 mg BEDTIME ORAL 01/16/19 21:00 02/15/19 20:59 01/16/19 21:21 Last 24 Hour Vital Signs Date Time Temp Pulse Resp B/P (MAP) Pulse Ox O2 Delivery O2 Flow Rate FiO2 01/17/19 04:00 97.6 58 18 108/60 (76) 99 01/17/19 00:00 97.9 66 20 112/60 (77) 96 01/16/19 21:00 Room Air 01/16/19 20:00 97.6 68 18 110/59 (76) 96 01/16/19 16:00 98.0 69 18 101/69 (80) 98 01/16/19 12:00 97.7 68 18 94/68 (77) 96 01/16/19 09:00 Room Air 01/16/19 08:47 61 111/70 01/16/19 08:46 111/70 01/16/19 08:46 111/70 01/16/19 08:46 61 111/70 01/16/19 08:00 97.7 61 19 111/70 (84) 96 01/16/19 04:00 97.6 56 18 108/70 (83) 95 01/16/19 00:00 98.1 62 20 107/59 (75) 97 01/15/19 21:00 Room Air 01/15/19 20:00 97.8 66 20 101/60 (74) 98 01/15/19 16:49 98.0 96 19 106/70 (82) 97 01/15/19 12:00 98.0 96 19 131/80 (97) 97 01/15/19 09:00 Room Air Intake and Output 01/16/19 01/17/19 19:00 07:00 # Voids 2 # Bowel Movements 5 Labs Test 01/15/19 02:30 White Blood Count 10.3 K/UL (4.8-10.8) Red Blood Count 5.34 M/UL (4.70-6.10) Hemoglobin 16.1 G/DL (14.2-18.0) Hematocrit 47.3 % (42.0-52.0) Mean Corpuscular Volume 89 FL (80-99) Mean Corpuscular Hemoglobin 30.1 PG (27.0-31.0) Mean Corpuscular Hemoglobin Concent 33.9 G/DL (32.0-36.0) Red Cell Distribution Width 13.1 % (11.6-14.8) Platelet Count 207 K/UL (150-450) Mean Platelet Volume 7.6 FL (6.5-10.1) Neutrophils (%) (Auto) 63.3 % (45.0-75.0) Lymphocytes (%) (Auto) 26.4 % (20.0-45.0) Monocytes (%) (Auto) 8.2 % (1.0-10.0) Eosinophils (%) (Auto) 1.2 % (0.0-3.0) Basophils (%) (Auto) 0.9 % (0.0-2.0) Prothrombin Time 10.9 SEC (9.30-11.50) Prothromb Time International Ratio 1.0 (0.9-1.1) Activated Partial Thromboplast Time 33 SEC (23-33) Sodium Level 143 MMOL/L (136-145) Potassium Level 4.0 MMOL/L (3.5-5.1) Chloride Level 108 MMOL/L (98-107) Carbon Dioxide Level 25 MMOL/L (21-32) Anion Gap 10 mmol/L (5-15) Blood Urea Nitrogen 12 mg/dL (7-18) Creatinine 0.9 MG/DL (0.55-1.30) Estimat Glomerular Filtration Rate > 60 mL/min (>60) Glucose Level 90 MG/DL (74-106) Calcium Level 9.8 MG/DL (8.5-10.1) Height (Feet): 6 Height (Inches): 2.00 Weight (Pounds): 175 Objective Physical Exam Gen: WD/WN, alert oriented x3 HEENT: normocephalic, atraumatic, anicteric, mucous membranes moist Chest: lungs clear CV: normal rate, regular rhythm, regularly irregular Abdomen: non tender, soft, no organomegaly Extremities: other Skin Exam: warm/dry left leg swelling ++ Nas Palacios MD Jan 17, 2019 08:52
[2019-01-17] MEDS: Imdur 30mg tab ORAL SCH (09:45)
[2019-01-17] MEDS: Metoprolol Succinate XL 50mg tab ORAL SCH (09:45)
[2019-01-17] MEDS: Lisinopril 20mg tab ORAL SCH (09:45)
[2019-01-17] MEDS: Milk of Magnesia 30ml Ud ORAL SCH ×2 (10:00→10:06)
[2019-01-17] MEDS: Depakote 500mg tab ORAL SCH ×2 (10:05→20:42)
[2019-01-17] MEDS: Docusate 100mg cap ORAL SCH (10:05)
[2019-01-17] MEDS: Eliquis 5mg tablet ORAL SCH ×2 (10:06→17:24)
[2019-01-17 12:00] VITALS: BP 133/83
[2019-01-17] MEDS ORDERED: RISPERDAL1 MG ORAL (12:06)
[2019-01-17] MEDS ORDERED: DEPAKOTE500 MG ORAL (12:06)
[2019-01-17] MEDS ORDERED: ELIQUIS5 MG ORAL (12:06)
--- NOTE | 2019-01-17 12:07 | Discharge Instructions ---
Discharge Instructions Discharge Instructions Diet: 2 GM sodium (low sodium) Resume Normal Activity?: Yes Activity: as tolerated Follow Up Orders Patient will be followed by Dr. Vila at [facility] Reminder Report to your physician any weight gain of 5 pounds or more in one week. Nimesh Torre M.D. Jan 17, 2019 12:07
--- NOTE | 2019-01-17 12:11 | Discharge Summary ---
Discharge Summary Hospital Course Date of Admission Jan 15, 2019 at 02:46 Date of Discharge 01/17/19 Admitting Diagnosis Deep Vein Thrombosis HPI Armen SanchezJr is a 53 year old male who was admitted on Jan 15, 2019 at 02:46 for Deep Vein Thrombosis Consultations Hematology: Dr. Palacios Hospital Course 53 year old with schizophrenia, HTN, CAD, and DVT admitted for left lower extremity DVT. 1. Left lower extremity DVT He was on full dose lovenox, he refused taking it. He also refuses to take his oral medications (I'm assuming he was refusing Xarelto at the SNF), very non compliant with medications here Changed to Eliquis 5mg BID Age appropriate cancer screening at discharge with PCP Hematology consult appreciated 2. History of stoke with left deficit, neuro prn 3. history of CAD- continue home meds 4. schizophrenia. Psychiatry consult appreciated, Syed ordered. Very combative and non compliant with medications. Better today and improving. started on depakote 500mg BID and Risperidone 2mg at bedtime 5.HTN- continue meds, BB, ACEI, Amlodipine, diuretics, monitor VTE ppx with eliquis, encourage ambulation Spoke to TATI Licona, patient has a brother names Suraj Sanchez [phone], . Patient previously resided in [facility]. [place] panning: Back to [facility] I spent 35 minutes on this encounter. >50% spent on counselling and care coordination. Discharge Medications New Medications: Apixaban (Eliquis) 5 Mg Tablet 5 MG ORAL BID for 30 Days, #60 TAB 2 Refills Divalproex Sodium (Depakote) 500 Mg Tablet. 500 MG ORAL EVERY 12 HOURS for 30 Days, #60 TAB 2 Refills Risperidone* (Risperdal*) 1 Mg Tablet 2 MG ORAL BEDTIME for 30 Days, #30 TAB 2 Refills Continued Medications: Acetaminophen* (Tylenol Extra Strength*) 500 Mg Tablet 650 MG ORAL Q6H PRN for Mild Pain/Temp > 101F, #2 TAB 0 Refills Amlodipine Besylate* (Amlodipine Besylate*) 5 Mg Tablet 5 MG ORAL DAILY, TAB Atorvastatin Calcium* (Lipitor*) 80 Mg Tablet 80 MG ORAL BEDTIME, TAB Bisacodyl (Dulcolax) 10 Mg Supp.rect 10 MG RC DAILY PRN for Constipation, SUPP Docusate Sodium* (Docusate Sodium*) 100 Mg Capsule 100 MG ORAL DAILY, CAP Escitalopram Oxalate* (Lexapro*) 20 Mg Tablet 20 MG ORAL DAILY, TAB Folic Acid* (Folic Acid*) 1 Mg Tablet 1 MG ORAL DAILY, TAB Hydrochlorothiazide* (Hydrochlorothiazide*) 25 Mg Tablet 25 MG ORAL DAILY, TAB Isosorbide Mononitrate (Isosorbide Mononitrate Er) 60 Mg Tab.er.24h 60 MG PO DAILY, TAB Lisinopril (Lisinopril*) 20 Mg Tablet 20 MG ORAL DAILY, TAB Magnesium Hydroxide* (Milk Of Magnesia*) 400 Mg/5 Ml Oral.susp 30 ML ORAL DAILY for constipation, ML Metoprolol Succinate* (Metoprolol Succinate*) 50 Mg Tab.er.24h 50 MG ORAL DAILY for hypertension, TAB Multivitamins* (Multivitamins*) 1 Each Tablet 1 TAB ORAL DAILY, TAB 0 Refills Discontinued Medications: Rivaroxaban (Xarelto) 20 Mg Tablet 20 MG ORAL DAILY for 30 Days, MG 0 Refills Tramadol Hcl* (Ultram*) 50 Mg Tablet 50 MG ORAL Q8HR PRN for For Pain, #12 TAB 0 Refills Discharge Condition Upon Discharge: improving Discharge Disposition Patient was discharged to Discharge Diagnoses: (1) Non-compliance with treatment (2) Schizophrenia (3) Deep vein thrombosis (DVT) of left lower extremity Discharge Instructions Discharge Instructions Activity: as tolerated Nimesh Torre M.D. Jan 17, 2019 12:11
[2019-01-17 16:00] VITALS: BP 115/86
--- NOTE | 2019-01-17 18:23 | General Progress Note ---
Assessment/Plan Status: stable Assessment/Plan: 53 year old with schizophrenia, HTN, CAD, and DVT admitted for left lower extremity DVT. 1. Left lower extremity DVT He was on full dose lovenox, he refused taking it. He also refuses to take his oral medications (I'm assuming he was refusing Xarelto at the SNF), very non compliant with medications here Changed to Eliquis 5mg BID Age appropriate cancer screening at discharge with PCP Hematology consult appreciated 2. History of stoke with left deficit, neuro prn 3. history of CAD- continue home meds 4. schizophrenia. Psychiatry consult appreciated, Syed ordered. Very combative and non compliant with medications. Better today and improving. started on depakote 500mg BID and Risperidone 2mg at bedtime 5.HTN- continue meds, BB, ACEI, Amlodipine, diuretics, monitor VTE ppx with eliquis, encourage ambulation Spoke to TATI Licona, patient has a brother names Suraj Sanchez [phone], . Patient previously resided in [facility]. [place] panning: Back to [facility] I spent 20 minutes on this encounter. >50% spent on counselling and care coordination. Subjective Date patient seen: Jan 17, 2019 ROS Limited/Unobtainable: Yes Allergies: Coded Allergies: No Known Allergies (Unverified , 01/15/19) Subjective calm, but inappropriate does not answer questions appropriately seen by psychiatry Objective Last 24 Hour Vital Signs Date Time Temp Pulse Resp B/P (MAP) Pulse Ox O2 Delivery O2 Flow Rate FiO2 01/17/19 16:00 97.5 81 18 115/86 (96) 98 01/17/19 12:00 97.6 95 14 133/83 (100) 98 01/17/19 09:45 95/60 01/17/19 09:45 64 95/60 01/17/19 09:45 95/60 01/17/19 09:45 64 95/60 01/17/19 09:00 Room Air 01/17/19 08:00 97.4 64 14 95/60 (72) 95 01/17/19 04:00 97.6 58 18 108/60 (76) 99 01/17/19 00:00 97.9 66 20 112/60 (77) 96 01/16/19 21:00 Room Air 01/16/19 20:00 97.6 68 18 110/59 (76) 96 Intake and Output 01/16/19 01/17/19 19:00 07:00 # Voids 2 # Bowel Movements 5 Height (Feet): 6 Height (Inches): 2.00 Weight (Pounds): 175 Objective General Appearance: well appearing, no apparent distress, alert Head: normocephalic, atraumatic Eyes: bilateral eye PERRL, bilateral eye EOMI ENT: hearing grossly normal, normal pharynx Neck: full range of motion, supple, no meningismus Respiratory: chest non-tender, lungs clear, normal breath sounds Cardiovascular: regular rate, rhythm, no murmur Gastrointestinal: normal bowel sounds, non tender, no mass, no organomegaly, no bruit, non-distended Musculoskeletal: Edema to the left lower extremity from the calf to toes. No redness. No warmth. Psychiatric: mood/affect flat Nimesh Torre M.D. Jan 17, 2019 18:23
[2019-01-17 20:00] VITALS: BP 112/71
--- NOTE | 2019-01-17 20:15 | Progress Note ---
DATE: 01/17/2019 SUBJECTIVE: The patient is in bed. He took his risperidone last night, more manageable today and has poor insight into his current medical condition. MENTAL STATUS EXAMINATION: The patient is alert and oriented x3. Mood is neutral. Affect is flat. Thought process, there is a paucity of thought content. Thought content, no suicidal or homicidal ideations. ASSESSMENT: Schizophrenia, rule out schizoaffective disorder, bipolar type. PLAN: 1. We will decrease Lexapro to 10 mg. 2. Continue the Depakote. 3. Continue the risperidone. 4. Provide the patient with reality orientation. Latanya Madrid M.D. DR: Suri JOB#: [id number] CC:
[2019-01-17] MEDS: Atorvastatin 80mg tab ORAL SCH (20:42)
[2019-01-18 00:43] VITALS: BP 114/72
[2019-01-18 04:00] VITALS: BP 117/72
--- NOTE | 2019-01-18 06:33 | Hematology/Onc Progress Note ---
Assessment/Plan Assessment/Plan Assessment/Recs # Left leg DVT- started on lovenox full dose. Consider vascular consult. stop xarelto. ?hypercoagulable. need old history, also in the past had been on coumadin but does not know why he is now off of it --> initially started on lovenox but since noncompliant --> HAVE CHANGED TO ELIQUIS --> no exacerbating factors besides immobility --> continue to monitor for progression, for symptoms, sob, cp, right leg swelling --> consider age appropriate cancer screening with psa and colo prn >50y old --> VERY Noncompliant with meds # hx stroke with left deficit --> neuro prn # hx CAD- continue home meds # hx schizophrenia- ?psych consult # hx HTN- continue meds --> BB, ACEI, Amlodipine, diuretics, monitor # Dvt ppx with eliquis # Noncompliant/combative attitude # Dc planning with pcp Time of note does not correspond to time patient was seen. Greatly appreciate consultation. Subjective Constitutional: Denies: no symptoms, chills, fever, malaise, weakness, other HEENT: Denies: no symptoms, eye pain, blurred vision, tearing, double vision, ear pain, ear discharge, nose pain, nose congestion, throat pain, throat swelling, mouth pain, mouth swelling, other Cardiovascular: Denies: no symptoms, chest pain, edema, irregular heart rate, lightheadedness, palpitations, syncope, other Respiratory: Denies: no symptoms, cough, shortness of breath, SOB with excertion, SOB at rest, sputum, wheezing, other Gastrointestinal/Abdominal: Denies: no symptoms, abdomen distended, abdominal pain, black stools, tarry stools, blood in stool, constipated, diarrhea, difficulty swallowing, nausea, poor appetite, poor fluid intake, rectal bleeding , vomiting, other Genitourinary: Denies: no symptoms, burning, discharge, frequency, flank pain, hematuria, incontinence, pain, urgency, other Neurologic/Psychiatric: Denies: no symptoms, anxiety, depressed, emotional problems, headache, numbness, paresthesia, pre-existing deficit, seizure, tingling, tremors, weakness, other Allergies: Coded Allergies: No Known Allergies (Unverified , 01/15/19) Subjective 01/16: overnight abusive to RNs, yelling, screaming, refusing lovenox 01/17: no acute events, uncooperative, refusing treatment and care 01/18: dc planning pending, on eliquis, less swollen leg Objective Objective Current Medications Medications (Trade) Dose Ordered Sig/May Route PRN Reason Start Time Stop Time Status Last Admin Dose Admin Acetaminophen (Tylenol) 650 mg Q6H PRN ORAL Mild Pain/Temp > 100.5 01/15/19 05:45 02/14/19 05:44 Amlodipine Besylate (Norvasc) 5 mg DAILY ORAL 01/15/19 09:00 02/14/19 08:59 01/16/19 08:46 Apixaban (Eliquis) 5 mg BID ORAL 01/16/19 09:00 02/15/19 08:59 01/17/19 17:24 Atorvastatin Calcium (Lipitor) 80 mg BEDTIME ORAL 01/15/19 21:00 02/14/19 20:59 01/17/19 20:42 Bisacodyl (Dulcolax) 10 mg NEEDED PRN RECTAL Constipation 01/15/19 05:00 02/14/19 04:59 Divalproex Sodium (Depakote) 500 mg EVERY 12 HOURS ORAL 01/17/19 09:00 02/16/19 08:59 01/17/19 20:42 Docusate Sodium (Colace) 100 mg DAILY ORAL 01/15/19 09:00 02/14/19 08:59 01/17/19 10:05 Escitalopram Oxalate (Lexapro) 10 mg DAILY ORAL 01/18/19 09:00 02/17/19 08:59 Folic Acid (Folate) 1 mg DAILY ORAL 01/15/19 09:00 02/14/19 08:59 01/17/19 09:00 Haloperidol Lactate (Haldol) 5 mg Q6H PRN IM Agitation 01/16/19 10:15 02/15/19 10:14 Hydrochlorothiazide (Hydrodiuril) 25 mg DAILY ORAL 01/15/19 09:00 02/14/19 08:59 01/16/19 08:47 Isosorbide Mononitrate (Imdur) 60 mg DAILY ORAL 01/15/19 09:00 02/14/19 08:59 01/16/19 08:46 Lisinopril (Prinivil) 20 mg DAILY ORAL 01/15/19 09:00 02/14/19 08:59 01/16/19 08:46 Lorazepam (Ativan) 1 mg Q6H PRN ORAL For Anxiety 01/16/19 12:00 01/23/19 11:59 01/16/19 12:39 Magnesium Hydroxide (Mom) 30 ml DAILY ORAL 01/15/19 09:00 02/14/19 08:59 01/16/19 08:47 Metoprolol Succinate (Toprol XL) 50 mg DAILY ORAL 01/15/19 09:00 02/14/19 08:59 01/16/19 08:47 Multivitamins (Multivitamins) 1 tab DAILY ORAL 01/15/19 09:00 02/14/19 08:59 01/17/19 10:06 Risperidone (RisperDAL) 2 mg BEDTIME ORAL 01/16/19 21:00 02/15/19 20:59 01/17/19 20:43 Last 24 Hour Vital Signs Date Time Temp Pulse Resp B/P (MAP) Pulse Ox O2 Delivery O2 Flow Rate FiO2 01/18/19 04:00 96.5 75 18 117/72 (87) 01/18/19 00:43 96.8 54 18 114/72 (86) 01/17/19 21:12 Room Air 01/17/19 20:00 97.1 55 18 112/71 (85) 01/17/19 16:00 97.5 81 18 115/86 (96) 98 01/17/19 12:00 97.6 95 14 133/83 (100) 98 01/17/19 09:45 95/60 01/17/19 09:45 64 95/60 01/17/19 09:45 95/60 01/17/19 09:45 64 95/60 01/17/19 09:00 Room Air 01/17/19 08:00 97.4 64 14 95/60 (72) 95 01/17/19 04:00 97.6 58 18 108/60 (76) 99 01/17/19 00:00 97.9 66 20 112/60 (77) 96 01/16/19 21:00 Room Air 01/16/19 20:00 97.6 68 18 110/59 (76) 96 01/16/19 16:00 98.0 69 18 101/69 (80) 98 01/16/19 12:00 97.7 68 18 94/68 (77) 96 01/16/19 09:00 Room Air 01/16/19 08:47 61 111/70 01/16/19 08:46 111/70 01/16/19 08:46 111/70 01/16/19 08:46 61 111/70 01/16/19 08:00 97.7 61 19 111/70 (84) 96 Intake and Output 01/17/19 01/18/19 18:59 06:59 Intake Total 900 ml Balance 900 ml Other 900 ml # Bowel Movements 2 2 Height (Feet): 6 Height (Inches): 2.00 Weight (Pounds): 175 Objective Physical Exam Gen: WD/WN, alert oriented x3 HEENT: normocephalic, atraumatic, anicteric, mucous membranes moist Chest: lungs clear CV: normal rate, regular rhythm, regularly irregular Abdomen: non tender, soft, no organomegaly Extremities: other Skin Exam: warm/dry left leg swelling ++ Nas Palacios MD Jan 18, 2019 06:33
[2019-01-18 08:00] VITALS: BP 117/59
[2019-01-18] MEDS: Milk of Magnesia 30ml Ud ORAL SCH (08:41)
[2019-01-18] MEDS: Docusate 100mg cap ORAL SCH (08:41)
[2019-01-18] MEDS: Metoprolol Succinate XL 50mg tab ORAL SCH (08:42)
[2019-01-18] MEDS: Imdur 30mg tab ORAL SCH (08:43)
[2019-01-18] MEDS: Lisinopril 20mg tab ORAL SCH (08:44)
[2019-01-18] MEDS: Depakote 500mg tab ORAL SCH (08:46)
[2019-01-18] MEDS: Eliquis 5mg tablet ORAL SCH (08:46)
[2019-01-18 12:00] VITALS: BP 140/82
--- NOTE | 2019-01-18 23:45 | Progress Note ---
DATE: 01/18/2019 SUBJECTIVE: The patient is more redirectable, calmer, less labile. No episodes of agitation today. MENTAL STATUS EXAMINATION: The patient is alert, oriented times self, place, and date. Mood is dysphoric. Affect is constricted, congruent with mood. Thought process is concrete. Thought content, no suicidal or homicidal ideation. ASSESSMENT: Schizophrenia. PLAN: 1. We will continue the risperidone. 2. Continue Depakote. 3. Continue the Lexapro. 4. Provide the patient reality orientation and supportive therapy. Latanya Madrid M.D. DR: RODERICK JOB#: [id number] CC:
== END 2019-01-18 14:37 | DRG 197 ==
LOC: EDBD 01:28 → EMR 01:50 → EDBEDREQ 02:33 → 4E 02:46 → EDBEDREQ 02:54 → 4E 01-16 02:30
DX: I82.412 Acute embolism and thrombosis of left femoral vein (principal); I69.354 Hemiplegia and hemiparesis following cerebral infarction affecting left non-dominant side; I25.10 Atherosclerotic heart disease of native coronary artery without angina pectoris; Z95.5 Presence of coronary angioplasty implant and graft; Z91.19 Patient's noncompliance with other medical treatment and regimen; F20.9 Schizophrenia, unspecified
CPT/HCPCS: 36415; 80048; 85025; 85610; 85730; 87081; 93971; 96372; 99285

== ENCOUNTER 2019-02-05 11:01 | Inpatient (IN) | payer MEDICAID ==
[~2019-02-05] VITALS: Ht 190.5 cm; Wt 88.7 kg
[~2019-02-05 11:01] MED LIST: AMLODIPINE BESYL5 MG ORAL; ATORVASTATIN CA80 MG ORAL; DEPAKOTE500 MG ORAL; DOCUSATE SODIU100 MG ORAL; DULCOLAX10 MG RC; ELIQUIS5 MG ORAL; FOLIC ACID1 MG ORAL; HYDROCHLOROTHIA25 MG ORAL; ISOSORBIDE MONO60 M1 PO; LEXAPRO20 MG ORAL; LISINOPRIL20 MG ORAL; METOPROLOL SUCC50 MG ORAL; MILK OF MA400 MG/51 ORAL; MULTIVITAMINS1 EAC2 ORAL; RISPERDAL1 MG ORAL; TRAMADOL HCL50 MG ORAL; TYLENOL EXTRA500 MG ORAL; XARELTO20 MG ORAL
--- NOTE | 2019-02-05 11:05 | NUR ---
Note brigitte in EDM - 02/05/19 at 1228 by HANNAH ED Nurse Note: Patient arrived to ED [facility] by EMS.
--- NOTE | 2019-02-05 11:05 | NUR ---
ED Nurse Note: Patient arrived to ED brought by EMS. Complained of 10/10 chest pain this AM at [facility], where he currently lives. Given 325 ASA x 1 by paramedics, no nitro given. 2 L O2 given on the way to hospital for comfort. Currently on room air, in no distress. Patient stated he does not know why he is here and that he did not complain of chest pain. Patient alert and responsive, but confused. Left sided weakess present at baseline. Patient normally uses wheelchair. Skin intact. Scar on chest and abdomen noted.
[2019-02-05 11:15] VITALS: BP 160/90
--- NOTE | 2019-02-05 11:20 | Emergency Room Report ---
History of Present Illness General Chief Complaint: Chest Pain Source: Patient, Medical Record Present Illness HPI 53-year-old male presented with chest pain this a.m., unspecified time, patient was at rest, no aggravating relieving factors severity is moderate lasting minutes, apparently resolved, pain was described as aching nature/pressure-like , patient with a history of CABG, hyperlipidemia, unknown family history of chest pain, patient is a poor historian, he does not know why he was there he states he is currently chest pain-free no nausea no vomiting, no abdominal pain patient presents for evaluation Allergies: Coded Allergies: FENTANYL (Unverified Allergy, Unknown, 02/05/19) Patient History Past Medical History: see triage record Social History: Reports: smoking Reviewed Nursing Documentation: PMH: Agreed; PSxH: Agreed Nursing Documentation-PMH Hx Hypertension: Yes - hyperlipidemia Hx COPD: Yes Hx Cerebrovascular Accident: Yes - left side Review of Systems All Other Systems: negative except mentioned in HPI Physical Exam Vital Signs Date Time Temp Pulse Resp B/P (MAP) Pulse Ox O2 Delivery O2 Flow Rate FiO2 02/05/19 11:05 97.5 54 16 90/56 (67) 90 Room Air Sp02 EP Interpretation: reviewed, normal General Appearance: well appearing, no apparent distress, alert Head: normocephalic, atraumatic Eyes: bilateral eye PERRL, bilateral eye EOMI ENT: uvula midline, moist mucus membranes Neck: supple, thyroid normal, supple/symm/no masses Respiratory: lungs clear, no respiratory distress, no retraction, no accessory muscle use Cardiovascular #1: normal peripheral pulses, regular rate, rhythm, no edema, no gallop, no murmur Gastrointestinal: non tender, soft, no guarding, no rebound Musculoskeletal: normal inspection Neurologic: alert, oriented x3 Psychiatric: mood/affect normal Skin: no rash, warm/dry Procedures Critical Care Time Critical Care Time Given the critical condition in which the patient arrived, the patient was immediately assessed by myself and the nurse, and cardiac monitoring initiated due to the potential for rapid decompensation of the patient's clinical condition. During the course of the patient's stay, I spent a considerable amount of time at the bedside performing serial re-evaluations of the patient's hemodynamic and clinical status because of the recognized potential threat to life or limb in this condition. I then had a chance to review not only all of the available current laboratory and radiographic studies obtained today, but I also reviewed old records available to me at the time. Additionally, any ancillary information available including medical billing clerk records were reviewed. Sequential vital signs were obtained. Critical Care time of 33 minutes was performed exclusive of billable procedures. Medical Decision Making Diagnostic Impression: Primary Impression: Chest pain Qualified Codes: R07.9 - Chest pain, unspecified Additional Impression: NSTEMI (non-ST elevated myocardial infarction) ER Course 53-year-old male presents with chest pain, that has since resolved. Patient with a history of CABG, multiple risk factors, differential diagnosis includes ACS, pneumonia, NV Patient with an elevated troponin, patient given Plavix, aspirin already given in route, patient was also given Lovenox here Patient to be admitted to telemetry, patient remained stable, patient was given a gentle fluid bolus Patient admitted to Dr. Mondragon Laboratory Tests Test 02/05/19 12:00 White Blood Count 10.7 K/UL (4.8-10.8) Red Blood Count 5.28 M/UL (4.70-6.10) Hemoglobin 15.9 G/DL (14.2-18.0) Hematocrit 47.0 % (42.0-52.0) Mean Corpuscular Volume 89 FL (80-99) Mean Corpuscular Hemoglobin 30.1 PG (27.0-31.0) Mean Corpuscular Hemoglobin Concent 33.9 G/DL (32.0-36.0) Red Cell Distribution Width 12.4 % (11.6-14.8) Platelet Count 213 K/UL (150-450) Mean Platelet Volume 8.7 FL (6.5-10.1) Neutrophils (%) (Auto) 65.9 % (45.0-75.0) Lymphocytes (%) (Auto) 23.6 % (20.0-45.0) Monocytes (%) (Auto) 8.2 % (1.0-10.0) Eosinophils (%) (Auto) 1.6 % (0.0-3.0) Basophils (%) (Auto) 0.7 % (0.0-2.0) Prothrombin Time 11.1 SEC (9.30-11.50) Prothrombin Time INR 1.0 (0.9-1.1) PTT 33 SEC (23-33) Sodium Level 141 MMOL/L (136-145) Potassium Level 3.8 MMOL/L (3.5-5.1) Chloride Level 107 MMOL/L (98-107) Carbon Dioxide Level 28 MMOL/L (21-32) Anion Gap 6 mmol/L (5-15) Blood Urea Nitrogen 16 mg/dL (7-18) Creatinine 0.8 MG/DL (0.55-1.30) Estimate Glomerular Filtration Rate > 60 mL/min (>60) Glucose Level 97 MG/DL (74-106) Calcium Level 9.2 MG/DL (8.5-10.1) Total Bilirubin 0.4 MG/DL (0.2-1.0) Aspartate Amino Transferase (AST) 10 U/L (15-37) L Alanine Aminotransferase (ALT) 17 U/L (12-78) Alkaline Phosphatase 51 U/L (46-116) Total Creatine Kinase 78 U/L (26-308) Creatine Kinase MB 5.5 NG/ML (0.0-3.6) H Creatine Kinase MB Relative Index 7.0 Troponin I 0.395 ng/mL (0.000-0.056) Pro-B-Type Natriuretic Peptide 78 pg/mL (0-125) Total Protein 6.4 G/DL (6.4-8.2) Albumin 3.1 G/DL (3.4-5.0) L Globulin 3.3 g/dL Albumin/Globulin Ratio 0.9 (1.0-2.7) L Lipase 57 U/L (73-393) L EKG Diagnostic Results EKG Time: 11:13 EP Interpretation: sinus bradycardia, rate 56, QTc 411, no acute ST elevations , normal axis Rhythm Strip Diag. Results Rhythm Strip Time: 11:20 EP Interpretation: yes Rate: 54 Rhythm: other - sinus bradycardia Chest X-Ray Diagnostic Results Chest X-Ray Diagnostic Results : Chest X-Ray Ordered: Yes Indication: Chest Pain EP Interpretation: Yes Interpretation: no consolidation, no effusion, no pneumothorax, no acute cardiopulmonary disease Impression: No acute disease Electronically Signed by: Ziggy Bolivar MD Last Vital Signs Date Time Temp Pulse Resp B/P (MAP) Pulse Ox O2 Delivery O2 Flow Rate FiO2 02/05/19 11:05 97.5 54 16 90/56 (67) 90 Room Air Disposition: ADMITTED INPATIENT Condition: Stable Ziggy Bolivar MD Feb 05, 2019 11:20
[2019-02-05 12:15] LABS: BASOPHILS % (AUTO) 0.7 % (0.0-2.0); EOSINOPHILS % (AUTO) 1.6 % (0.0-3.0); HEMOGLOBIN 15.9 G/DL (14.2-18.0); LYMPHOCYTES % (AUTO) 23.6 % (20.0-45.0); MEAN CORPUSCULAR VOLUME 89 FL (80-99); MONOCYTES % (AUTO) 8.2 % (1.0-10.0); NEUTROPHILS % (AUTO) 65.9 % (45.0-75.0); PLATELET COUNT 213 K/UL (150-450); RED BLOOD COUNT 5.28 M/UL (4.70-6.10); RED CELL DISTRIBUTION WIDTH 12.4 % (11.6-14.8); WHITE BLOOD COUNT 10.7 K/UL (4.8-10.8)
[2019-02-05] MEDS ORDERED: TRAMADOL HCL50 MG ORAL (12:22)
[2019-02-05] MEDS ORDERED: TYLENOL EXTRA500 MG ORAL (12:22)
[2019-02-05 12:31] LABS: ANION GAP 6 mmol/L (5-15); BLOOD UREA NITROGEN 16 mg/dL (7-18); CALCIUM 9.2 MG/DL (8.5-10.1); CARBON DIOXIDE 28 MMOL/L (21-32); CHLORIDE 107 MMOL/L (98-107); CREATININE 0.8 MG/DL (0.55-1.30); POTASSIUM 3.8 MMOL/L (3.5-5.1); SODIUM 141 MMOL/L (136-145)
[2019-02-05 12:45] LABS: ALANINE AMINOTRANSFERASE 17 U/L (12-78); ALBUMIN 3.1 G/DL (3.4-5.0); ALBUMIN/GLOBULIN RATIO 0.9 (1.0-2.7); ALKALINE PHOSPHATASE 51 U/L (46-116); ASPARTATE AMINO TRANSFERASE 10 U/L (15-37); BILIRUBIN,TOTAL 0.4 MG/DL (0.2-1.0); CKMB 5.5 NG/ML (0.0-3.6); CREATINE KINASE 78 U/L (26-308)
[2019-02-05] MEDS ORDERED: Enoxaparin 100mg Inj SUBQ ONE (12:45)
--- NOTE | 2019-02-05 13:01 | NUR ---
Lovenox and Plavix given to patient, as ordered. Nasal swab taken, rectal swab refused by patient.
--- NOTE | 2019-02-05 13:02 | NUR ---
ED Nurse Note: Patient sleeping in bed. Arousable when RN called his name. Denies any CP or SOB. Dr. Bolivar at bedside and notified that patient has blood pressure of 86/64 with HR 56/min.
--- NOTE | 2019-02-05 13:20 | NUR ---
ED Nurse Note: pt refused in and out catheter and unable to provide urine sample at this time.
[2019-02-05 13:30] VITALS: BP 103/70
--- NOTE | 2019-02-05 13:41 | NUR ---
ED Nurse Note: RN confirmed with Dr. Bolivar that pt is ok to go tele unit without urine test.
--- NOTE | 2019-02-05 13:44 | Cardiac Electrophysiology PN ---
Subjective Subjective [id number] Objective Last 24 Hour Vital Signs Date Time Temp Pulse Resp B/P (MAP) Pulse Ox O2 Delivery O2 Flow Rate FiO2 02/05/19 11:15 57 16 160/90 95 Room Air 57 02/05/19 11:15 57 16 Room Air 95 02/05/19 11:05 97.5 54 16 90/56 (67) 90 Room Air Laboratory Tests Test 02/05/19 12:00 White Blood Count 10.7 K/UL (4.8-10.8) Red Blood Count 5.28 M/UL (4.70-6.10) Hemoglobin 15.9 G/DL (14.2-18.0) Hematocrit 47.0 % (42.0-52.0) Mean Corpuscular Volume 89 FL (80-99) Mean Corpuscular Hemoglobin 30.1 PG (27.0-31.0) Mean Corpuscular Hemoglobin Concent 33.9 G/DL (32.0-36.0) Red Cell Distribution Width 12.4 % (11.6-14.8) Platelet Count 213 K/UL (150-450) Mean Platelet Volume 8.7 FL (6.5-10.1) Neutrophils (%) (Auto) 65.9 % (45.0-75.0) Lymphocytes (%) (Auto) 23.6 % (20.0-45.0) Monocytes (%) (Auto) 8.2 % (1.0-10.0) Eosinophils (%) (Auto) 1.6 % (0.0-3.0) Basophils (%) (Auto) 0.7 % (0.0-2.0) Prothrombin Time 11.1 SEC (9.30-11.50) Prothromb Time International Ratio 1.0 (0.9-1.1) Activated Partial Thromboplast Time 33 SEC (23-33) Sodium Level 141 MMOL/L (136-145) Potassium Level 3.8 MMOL/L (3.5-5.1) Chloride Level 107 MMOL/L (98-107) Carbon Dioxide Level 28 MMOL/L (21-32) Anion Gap 6 mmol/L (5-15) Blood Urea Nitrogen 16 mg/dL (7-18) Creatinine 0.8 MG/DL (0.55-1.30) Estimat Glomerular Filtration Rate > 60 mL/min (>60) Glucose Level 97 MG/DL (74-106) Calcium Level 9.2 MG/DL (8.5-10.1) Total Bilirubin 0.4 MG/DL (0.2-1.0) Aspartate Amino Transf (AST/SGOT) 10 U/L (15-37) L Alanine Aminotransferase (ALT/SGPT) 17 U/L (12-78) Alkaline Phosphatase 51 U/L (46-116) Total Creatine Kinase 78 U/L (26-308) Creatine Kinase MB 5.5 NG/ML (0.0-3.6) H Creatine Kinase MB Relative Index 7.0 Troponin I 0.395 ng/mL (0.000-0.056) Pro-B-Type Natriuretic Peptide 78 pg/mL (0-125) Total Protein 6.4 G/DL (6.4-8.2) Albumin 3.1 G/DL (3.4-5.0) L Globulin 3.3 g/dL Albumin/Globulin Ratio 0.9 (1.0-2.7) L Lipase 57 U/L (73-393) L Johnny Guadalupe MD Feb 05, 2019 13:44
--- NOTE | 2019-02-05 13:55 | NUR ---
ED Nurse Note: Called and gave report to receiving nurse FRANK Leon.
[2019-02-05] MEDS ORDERED: Nitroglycerin Subl 0.4mg tab SL PRN (14:30)
[2019-02-05 14:40] VITALS: BP 104/69
--- NOTE | 2019-02-05 14:40 | NUR ---
NURSE NOTES: Patient transferred safely to floor from ED. Report received from FRANK Yu. Belongings list verified. Pt has black flip phone at bedside with chip person. equipment mechanic applied and pt is sinus carlos @ 55bpm. Pt is A+Ox3, sometimes forgets why he is in the hospital. Respirations are even and unlabored on room air. No SOB/pain noted. Pt is not complaining of any chest pain. Bed is at lowest position, brakes engaged, siderails x2, bed alarm on, and call light within reach. Pt is in stable condition at this time; admission orders in.
[2019-02-05 14:55] LABS: PHOSPHORUS 3.3 MG/DL (2.5-4.9)
[2019-02-05 16:00] VITALS: BP 109/68
[2019-02-05] MEDS ORDERED: ATIVAN1 MG ORAL (16:31)
[2019-02-05] MEDS: Nitroglycerin 2% oint pkt TOPIC SCH (17:53)
--- NOTE | 2019-02-05 19:10 | NUR ---
HAND-OFF: Report given to FRANK Ludwig. Pt is in stable condition, sleeping in bed. Plan of care endorsed.
[2019-02-05 20:00] VITALS: BP 109/64
--- NOTE | 2019-02-05 20:52 | History and Physical ---
History of Present Illness General Date patient seen: Feb 05, 2019 Reason for Hospitalization: Chest Pain Present Illness HPI Is a 53-year-old male with a past medical history of CAD status post CABG, Hypertension, history of DVT, schizophrenia who presents from his [facility] with complaint of chest pain. The patient is a poor historian. He does not remember ever having chest pain, does he cannot characterize or describe it in any way. Per his [facility] he was complaining of chest pain and given his extensive cardiac history he was sent to [facility] for further evaluation. Prior to his transfer he was given 325 mg aspirin. He denies any shortness of breath, fever, cough, chills, nausea, vomiting, diaphoresis, pleuritic chest pain. In the ER the patient had a temperature of 97.9 a pulse of 59 blood pressure 103 /69 and a pulse ox of 99% on room air. His WBC was 10.7 the rest of the CBC was normal his CMP and lipase are unremarkable. His troponin was elevated at 0.395 is CK-MB was 5.5 with a relative index of 7.0. EKG showed sinus bradycardia rate [address] elevations normal axis. Chest x-ray showed no acute cardiopulmonary disease. Cardiology was consulted who recommended medical management. No need to transfer for cardiac cath at this time. Patient was given 100 mg Plavix and Lovenox 100 mg. He was also given 1 L of normal saline. The patient denied any chest pain while in the ER. Allergies: Fentanyl Meds: reviewed PMhx: See HPI Past surgical history CABG Stomach surgery? Back surgery? Family history Father some lung disease? Social history Tobacco: [id number] history EtOH: Former heavy drinker Drug use: Denies Allergies: Coded Allergies: FENTANYL (Unverified Allergy, Unknown, 02/05/19) Medication History Scheduled Amlodipine Besylate* (Amlodipine Besylate*), 5 MG ORAL DAILY, (Reported) Apixaban (Eliquis), 5 MG ORAL BID Atorvastatin Calcium* (Lipitor*), 80 MG ORAL BEDTIME, (Reported) Divalproex Sodium (Depakote), 500 MG ORAL EVERY 12 HOURS Docusate Sodium* (Docusate Sodium*), 100 MG ORAL DAILY, (Reported) Escitalopram Oxalate* (Lexapro*), 20 MG ORAL DAILY, (Reported) Folic Acid* (Folic Acid*), 1 MG ORAL DAILY, (Reported) Hydrochlorothiazide* (Hydrochlorothiazide*), 25 MG ORAL DAILY, (Reported) Isosorbide Mononitrate (Isosorbide Mononitrate Er), 60 MG PO DAILY, (Reported) Lisinopril (Lisinopril*), 20 MG ORAL DAILY, (Reported) Magnesium Hydroxide* (Milk Of Magnesia*), 30 ML ORAL DAILY, (Reported) Metoprolol Succinate* (Metoprolol Succinate*), 50 MG ORAL DAILY, (Reported) Multivitamins* (Multivitamins*), 1 TAB ORAL DAILY, (Reported) Risperidone* (Risperdal*), 2 MG ORAL BEDTIME Scheduled PRN Acetaminophen* (Tylenol Extra Strength*), 650 MG ORAL Q6H PRN for Mild Pain/ Temp > 101F, (Reported) Acetaminophen* (Tylenol Extra Strength*), 325 MG ORAL Q6H PRN for Mild Pain/ Temp > 100.5, (Reported) Bisacodyl (Dulcolax), 10 MG RC DAILY PRN for Constipation, (Reported) Lorazepam* (Ativan*), 1 MG ORAL Q6HR PRN for For Anxiety, (Reported) Tramadol Hcl* (Ultram*), 50 MG ORAL Q8HR PRN for For Pain, (Reported) Patient History Healthcare decision maker Resuscitation status Full Code Advanced Directive on File No Review of Systems Constitutional: Denies: see HPI, chills, sweats, fever, malaise, weakness, other Eye: Denies: see HPI, eye pain, blurred vision, tearing, double vision, nose pain, nose congestion, acuity changes, discharge, other ENT: Denies: see HPI, ear pain, ear discharge, nose pain, nose congestion, throat pain, throat swelling, mouth pain, hearing loss, nasal discharge, other Respiratory: Denies: see HPI, cough, orthopnea, shortness of breath, stridor, wheezing, GONSALES, sputum, other Cardiovascular: Denies: see HPI, chest pain, edema, palpitations, syncope, PND , other Gastrointestinal: Denies: see HPI, abdominal pain, constipation, diarrhea, nausea, vomiting, melena, hematemesis, other Genitourinary: Denies: see HPI, discharge, dysuria, frequency, hematuria, pain , retention, incontinence, urgency, vag bleed/dc, other Musculoskeletal: Denies: see HPI, back pain, gout, joint pain, joint swelling, muscle pain, muscle stiffness, other Skin: Denies: see HPI, rash, change in color, change in hair/nails, dryness, lesions, other Psychiatric: Denies: see HPI, prior hx, anxiety, depressed feelings, emotional problems, SI, HI, hallucinations, other Neurological: Denies: see HPI, headache, numbness, paresthesia, seizure, tingling, tremors, focal weakness, syncope, dizziness, other Endocrine: Denies: see HPI, excessive sweating, flushing, intolerance to temperature, increased thirst, increased urine, unexplained weight loss, other Hematologic/Lymphatic: Denies: see HPI, anemia, blood clots, easy bleeding, easy bruising, swollen glands, diathesis, other Physical Exam General Appearance: WD/WN, no apparent distress, alert Lines, tubes and drains: peripheral HEENT: normocephalic, atraumatic Neck: non-tender, normal alignment, supple Respiratory/Chest: chest wall non-tender, lungs clear, normal breath sounds, no respiratory distress, no accessory muscle use Cardiovascular/Chest: normal peripheral pulses, normal rate, regular rhythm, no JVD Abdomen: normal bowel sounds, non tender, soft, no organomegaly, no mass Extremities: normal range of motion, non-tender, normal inspection, normal capillary refill Skin Exam: normal pigmentation, warm/dry, cyanotic Neurologic: 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 grossly normal, no motor/sensory deficits, alert, oriented x 3, normal mood/affect Musculoskeletal: normal muscle bulk, no effusion Last 24 Hour Vital Signs Date Time Temp Pulse Resp B/P (MAP) Pulse Ox O2 Delivery O2 Flow Rate FiO2 02/05/19 20:00 98.1 62 18 109/64 (79) 98 02/05/19 17:53 109/68 02/05/19 16:00 64 02/05/19 16:00 97.9 67 17 109/68 (82) 97 02/05/19 14:40 97.8 55 17 104/69 (81) 96 02/05/19 14:40 55 02/05/19 14:40 Room Air 02/05/19 14:20 97.9 59 14 103/69 99 Room Air 95 02/05/19 13:30 56 14 103/70 98 Room Air 02/05/19 11:15 57 16 160/90 95 Room Air 57 02/05/19 11:15 57 16 Room Air 95 02/05/19 11:05 97.5 54 16 90/56 (67) 90 Room Air Laboratory Tests Test 02/05/19 12:00 02/05/19 19:38 White Blood Count 10.7 K/UL (4.8-10.8) Red Blood Count 5.28 M/UL (4.70-6.10) Hemoglobin 15.9 G/DL (14.2-18.0) Hematocrit 47.0 % (42.0-52.0) Mean Corpuscular Volume 89 FL (80-99) Mean Corpuscular Hemoglobin 30.1 PG (27.0-31.0) Mean Corpuscular Hemoglobin Concent 33.9 G/DL (32.0-36.0) Red Cell Distribution Width 12.4 % (11.6-14.8) Platelet Count 213 K/UL (150-450) Mean Platelet Volume 8.7 FL (6.5-10.1) Neutrophils (%) (Auto) 65.9 % (45.0-75.0) Lymphocytes (%) (Auto) 23.6 % (20.0-45.0) Monocytes (%) (Auto) 8.2 % (1.0-10.0) Eosinophils (%) (Auto) 1.6 % (0.0-3.0) Basophils (%) (Auto) 0.7 % (0.0-2.0) Prothrombin Time 11.1 SEC (9.30-11.50) Prothromb Time International Ratio 1.0 (0.9-1.1) Activated Partial Thromboplast Time 33 SEC (23-33) Sodium Level 141 MMOL/L (136-145) Potassium Level 3.8 MMOL/L (3.5-5.1) Chloride Level 107 MMOL/L (98-107) Carbon Dioxide Level 28 MMOL/L (21-32) Anion Gap 6 mmol/L (5-15) Blood Urea Nitrogen 16 mg/dL (7-18) Creatinine 0.8 MG/DL (0.55-1.30) Estimat Glomerular Filtration Rate > 60 mL/min (>60) Glucose Level 97 MG/DL (74-106) Calcium Level 9.2 MG/DL (8.5-10.1) Phosphorus Level 3.3 MG/DL (2.5-4.9) Magnesium Level 1.8 MG/DL (1.8-2.4) Total Bilirubin 0.4 MG/DL (0.2-1.0) Aspartate Amino Transf (AST/SGOT) 10 U/L (15-37) L Alanine Aminotransferase (ALT/SGPT) 17 U/L (12-78) Alkaline Phosphatase 51 U/L (46-116) Total Creatine Kinase 78 U/L (26-308) Creatine Kinase MB 5.5 NG/ML (0.0-3.6) H Creatine Kinase MB Relative Index 7.0 Troponin I 0.395 ng/mL (0.000-0.056) Pending Pro-B-Type Natriuretic Peptide 78 pg/mL (0-125) Total Protein 6.4 G/DL (6.4-8.2) Albumin 3.1 G/DL (3.4-5.0) L Globulin 3.3 g/dL Albumin/Globulin Ratio 0.9 (1.0-2.7) L Lipase 57 U/L (73-393) L Height (Feet): 6 Height (Inches): 3.00 Weight (Pounds): 196 Medications Current Medications Medications (Trade) Dose Ordered Sig/May Route PRN Reason Start Time Stop Time Status Last Admin Dose Admin Aspirin (Ecotrin) 325 mg DAILY ORAL 02/06/19 09:00 03/08/19 08:59 Atorvastatin Calcium (Lipitor) 80 mg BEDTIME ORAL 02/05/19 21:00 03/07/19 20:59 Dextrose (Dextrose 50%) 25 ml Q30M PRN IV Hypoglycemia 02/05/19 14:30 03/07/19 14:29 Dextrose (Dextrose 50%) 50 ml Q30M PRN IV Hypoglycemia 02/05/19 14:30 03/07/19 14:29 Heparin Sodium (Porcine) (Heparin 5000 units/ml) 5,000 units EVERY 8 HOURS SUBQ 02/05/19 22:00 03/07/19 21:59 Metoprolol Tartrate (Lopressor) 25 mg Q12HR ORAL 02/05/19 21:00 03/07/19 20:59 Nitroglycerin (Nitro-Bid) 1 inch TID@0600,1200,1800 TOPIC 02/05/19 18:00 03/07/19 17:59 02/05/19 17:53 Nitroglycerin (Ntg) 0.4 mg Q5M X 3 DOSES PRN SL Prn Chest Pain 02/05/19 14:30 03/07/19 14:29 Assessment/Plan Problem List: (1) NSTEMI (non-ST elevated myocardial infarction) ICD Codes: I21.4 - Non-ST elevation (NSTEMI) myocardial infarction SNOMED: 51896975 (2) CAD (coronary artery disease) ICD Codes: I25.10 - Atherosclerotic heart disease of [place] coronary artery without angina pectoris SNOMED: 36299896 (3) HTN (hypertension) ICD Codes: I10 - Essential (primary) hypertension SNOMED: 55647957 (4) History of DVT (deep vein thrombosis) ICD Codes: Z86.718 - Personal history of other venous thrombosis and embolism SNOMED: 088063505 (5) Schizophrenia ICD Codes: F20.9 - Schizophrenia, unspecified SNOMED: 73004236 (6) Non-compliance with treatment ICD Codes: Z91.19 - Patient's noncompliance with other medical treatment and regimen SNOMED: 8723601 Status: stable Assessment/Plan: Is a 53-year-old male with a past medical history of CAD status post CABG, tobacco use, history of DVT, who presents with chest pain. Now resolved #NSTEMI #CAD status post CABG #Hypertension > Status post Plavix 300 mg x 1 and Lovenox 100 mg subcu > Chest x-ray negative -Admit to telemetry -Trend troponins every 8 hours -Appreciate cardiology recommendations: Dr. Guadalupe -no need for heparin drip or cardiac cath at this time. Medical management -Aspirin 81 mg p.o. daily -Atorvastatin 80 mg p.o. nightly -Metoprolol tartrate 25 mg p.o. every 12 hours -Imdur 60 mg p.o. daily -Nitroglycerin as needed #Seizure disorder -Continue Depakote 500 mg p.o. every 12 hours -Check Depakote level #History of DVT -Continue home Eliquis 5 mg p.o. twice daily #Schizophrenia #Depression -Continue home risperidone 2 mg p.o. daily -Continue home Lexapro 10 mg p.o. daily FENPPX DVTPPX: apixiban GI PPX: none needed Fluids: none Diet: Cardiac Lines: none PT/OT: pending Dispo: back to LVT once above issues resolved 72 Minutes spent on this encounter. Discussed with RN, Cardiology, ER physician , and patient. > 50% spent on counseling and care coordination. Time of note may not reflect time patient was seen. Darrell Brandon D.O. Feb 05, 2019 20:52
--- NOTE | 2019-02-05 21:04 | NUR ---
NURSE NOTES: Called and left a message to Dr. Baxter for Trop. 2.349. Awaiting call back.
[2019-02-05] MEDS ORDERED: traMADol 50mg tab ORAL PRN (21:15)
[2019-02-05] MEDS: Atorvastatin 80mg tab ORAL SCH (21:29)
[2019-02-05] MEDS: Depakote 500mg tab ORAL SCH (21:29)
[2019-02-05] MEDS: Metoprolol 25mg tab ORAL SCH (21:30)
[2019-02-05] MEDS ORDERED: Heparin 5000 units/ml inj SUBQ SCH (22:00)
--- NOTE | 2019-02-05 22:48 | NUR ---
2E anode adjuster called Dr. Guadalupe X 2 ([phone] & 2139 respectively )re: increasing Troponin level.. No return call. Escalated to RN splicing supervisor. Called Dr. Guadalupe's home phone.Informed about the significant increase in Troponin level. Order to leave everything as is and just repeat the Troponin level in am.
--- NOTE | 2019-02-05 22:50 | NUR ---
NURSE NOTES: No new orders needed at this time per Dr. Baxter. Monitor for next Troponin level
[2019-02-06] VITALS: BP 107/68
[2019-02-06 03:49] LABS: BASOPHILS % (AUTO) 1.4 % (0.0-2.0); EOSINOPHILS % (AUTO) 2.3 % (0.0-3.0); HEMATOCRIT 44.7 % (42.0-52.0); HEMOGLOBIN 15.4 G/DL (14.2-18.0); LYMPHOCYTES % (AUTO) 43.1 % (20.0-45.0); MEAN CORPUSCULAR VOLUME 89 FL (80-99); MONOCYTES % (AUTO) 8.7 % (1.0-10.0); NEUTROPHILS % (AUTO) 44.5 % (45.0-75.0); PLATELET COUNT 204 K/UL (150-450); RED BLOOD COUNT 5.05 M/UL (4.70-6.10); RED CELL DISTRIBUTION WIDTH 12.4 % (11.6-14.8); WHITE BLOOD COUNT 8.4 K/UL (4.8-10.8)
[2019-02-06 03:55] LABS: ANION GAP 5 mmol/L (5-15); BLOOD UREA NITROGEN 20 mg/dL (7-18); CALCIUM 8.9 MG/DL (8.5-10.1); CARBON DIOXIDE 31 MMOL/L (21-32); CHLORIDE 109 MMOL/L (98-107); CREATININE 0.9 MG/DL (0.55-1.30); POTASSIUM 3.6 MMOL/L (3.5-5.1); SODIUM 145 MMOL/L (136-145)
[2019-02-06 03:59] LABS: CHOLESTEROL 134 MG/DL (< 200); HDL CHOLESTEROL 34 MG/DL (40-60); TRIGLYCERIDES 76 MG/DL (30-150)
[2019-02-06 04:00] VITALS: BP 109/65
[2019-02-06] MEDS: Nitroglycerin 2% oint pkt TOPIC SCH ×3 (06:57→17:52)
--- NOTE | 2019-02-06 07:32 | NUR ---
HAND-OFF: Report given to FRANK Rodas.
[2019-02-06 08:00] VITALS: BP 110/65
--- NOTE | 2019-02-06 08:30 | NUR ---
NURSE NOTES: @8am Patient made attempt to throw pillow and swing arm at primary nurse. Patient state he does not want to be in the hospital and go back to his facility. @815am Spoke with Dr. Galvan. States he will review orders and enter a medication to help medication to relax. patient is unable to make medical decisions for himself per primary doctor.
[2019-02-06] MEDS: LORazepam Inj 2mg/ml 1ml IV PRN (08:45)
[2019-02-06] MEDS ORDERED: Aspirin Baby 81mg ORAL SCH (09:00)
[2019-02-06] MEDS: Metoprolol 25mg tab ORAL SCH ×2 (09:00→20:44)
[2019-02-06] MEDS: Imdur 30mg tab ORAL SCH (09:00)
--- NOTE | 2019-02-06 09:30 | NUR ---
NURSE NOTES: Patient is calm and cooperative.
[2019-02-06] MEDS: Docusate 100mg cap ORAL SCH (09:54)
[2019-02-06] MEDS: Eliquis 5mg tablet ORAL SCH ×2 (09:55→17:52)
[2019-02-06] MEDS: Depakote 500mg tab ORAL SCH ×2 (09:55→20:42)
[2019-02-06] MEDS: Aspirin EC 325mg tab ORAL SCH (09:55)
[2019-02-06 12:00] VITALS: BP 122/79
--- NOTE | 2019-02-06 12:37 | Cardiac Electrophysiology PN ---
Assessment/Plan Assessment/Plan 1. NSTEMI with troponin peak of only 2.3 that is now down to 1.3 in a patient with Hx of CABG. No CP or SOB. No acute ECG changes. Echo Nl EF. Will schedule for nuclear stress test when patient able to consent. If significant ischemia will need Cardiac cath. Continue medical therapy with aspirin, Plavix, Lopressor, Lipitor and Isordil Already on Eliquis for DVT also 2. HTN 3. Schizophrenic 4. UE DVT on Eliquis 5. CVA with Left hemiplegia DW Dr Galvan Subjective Subjective No CP or SOB. Comfortable but got Ativan for agitation last night. Remained in SR and ECho Nl EF Objective Last 24 Hour Vital Signs Date Time Temp Pulse Resp B/P (MAP) Pulse Ox O2 Delivery O2 Flow Rate FiO2 02/06/19 09:00 110/65 02/06/19 09:00 58 110/65 02/06/19 08:00 97.4 58 18 110/65 (80) 96 02/06/19 06:57 109/65 02/06/19 04:00 54 02/06/19 04:00 97.5 56 18 109/65 (80) 97 02/06/19 00:00 97.5 54 18 107/68 (81) 97 02/06/19 00:00 53 02/05/19 21:30 62 109/64 02/05/19 21:00 Room Air 02/05/19 20:00 98.1 62 18 109/64 (79) 98 02/05/19 20:00 53 02/05/19 17:53 109/68 02/05/19 16:00 64 02/05/19 16:00 97.9 67 17 109/68 (82) 97 02/05/19 14:40 97.8 55 17 104/69 (81) 96 02/05/19 14:40 55 02/05/19 14:40 Room Air 02/05/19 14:20 97.9 59 14 103/69 99 Room Air 95 02/05/19 13:30 56 14 103/70 98 Room Air Intake and Output 02/05/19 02/06/19 19:00 07:00 Intake Total 1100 ml 480 ml Output Total 500 ml Balance 1100 ml -20 ml Intake Oral 100 ml 480 ml IV Total 1000 ml Output Urine Total 500 ml # Voids 3 Laboratory Tests Test 02/05/19 19:38 02/06/19 03:10 02/06/19 10:50 Troponin I 2.349 ng/mL (0.000-0.056) 2.326 ng/mL (0.000-0.056) 1.378 ng/mL (0.000-0.056) Valproic Acid (Depakene) Level 52 MCG/ML (50-100) White Blood Count 8.4 K/UL (4.8-10.8) Red Blood Count 5.05 M/UL (4.70-6.10) Hemoglobin 15.4 G/DL (14.2-18.0) Hematocrit 44.7 % (42.0-52.0) Mean Corpuscular Volume 89 FL (80-99) Mean Corpuscular Hemoglobin 30.4 PG (27.0-31.0) Mean Corpuscular Hemoglobin Concent 34.3 G/DL (32.0-36.0) Red Cell Distribution Width 12.4 % (11.6-14.8) Platelet Count 204 K/UL (150-450) Mean Platelet Volume 9.2 FL (6.5-10.1) Neutrophils (%) (Auto) 44.5 % (45.0-75.0) L Lymphocytes (%) (Auto) 43.1 % (20.0-45.0) Monocytes (%) (Auto) 8.7 % (1.0-10.0) Eosinophils (%) (Auto) 2.3 % (0.0-3.0) Basophils (%) (Auto) 1.4 % (0.0-2.0) Sodium Level 145 MMOL/L (136-145) Potassium Level 3.6 MMOL/L (3.5-5.1) Chloride Level 109 MMOL/L (98-107) H Carbon Dioxide Level 31 MMOL/L (21-32) Anion Gap 5 mmol/L (5-15) Blood Urea Nitrogen 20 mg/dL (7-18) H Creatinine 0.9 MG/DL (0.55-1.30) Estimat Glomerular Filtration Rate > 60 mL/min (>60) Glucose Level 101 MG/DL (74-106) Calcium Level 8.9 MG/DL (8.5-10.1) Magnesium Level 1.7 MG/DL (1.8-2.4) L Triglycerides Level 76 MG/DL (30-150) Cholesterol Level 134 MG/DL (< 200) LDL Cholesterol 95 mg/dL (<100) HDL Cholesterol 34 MG/DL (40-60) L Cholesterol/HDL Ratio 3.9 (3.3-4.4) Objective HEENT: No JVD LUNGS: Clear CVS: S/P Sternotomy intact Abdomen Soft EXT: No edema Johnny Guadalupe MD Feb 06, 2019 12:37
[2019-02-06] MEDS ORDERED: Lexiscan 0.4mg/5ml syringe IV PRN (12:45)
--- NOTE | 2019-02-06 13:00 | NUR ---
NURSE NOTES: 12:58- Troponin is 1.378. Received critical lab value from lab. 13:00- Dr. Galvan was made aware of troponin. No new orders at this time.
--- NOTE | 2019-02-06 13:15 | General Progress Note ---
Assessment/Plan Problem List: (1) NSTEMI (non-ST elevated myocardial infarction) ICD Codes: I21.4 - Non-ST elevation (NSTEMI) myocardial infarction SNOMED: 39241811 (2) CAD (coronary artery disease) ICD Codes: I25.10 - Atherosclerotic heart disease of [place] coronary artery without angina pectoris SNOMED: 41078059 (3) HTN (hypertension) ICD Codes: I10 - Essential (primary) hypertension SNOMED: 86036728 (4) History of DVT (deep vein thrombosis) ICD Codes: Z86.718 - Personal history of other venous thrombosis and embolism SNOMED: 830569359 (5) Schizophrenia ICD Codes: F20.9 - Schizophrenia, unspecified SNOMED: 05949549 (6) Non-compliance with treatment ICD Codes: Z91.19 - Patient's noncompliance with other medical treatment and regimen SNOMED: 6530125 Status: stable Assessment/Plan: Is a 53-year-old male with a past medical history of CAD status post CABG, tobacco use, history of DVT, who presents with NSTEMI. Now resolved #NSTEMI. Troponin peaked 2.3. Now downtrending #CAD status post CABG #Hypertension > Status post Plavix 300 mg x 1 and Lovenox 100 mg subcu > Chest x-ray negative > Echo 02/05/19 shows ejection fraction 55 to 60%. no focal wall motion abnormalities. -Admit to telemetry -Trend troponins every 8 hours -Appreciate cardiology recommendations: Dr. Guadalupe -stress test ordered. Given patient will have psychiatry evaluate for decision-making capacity regarding cardiac cath -Aspirin 81 mg p.o. daily -Atorvastatin 80 mg p.o. nightly -Metoprolol tartrate 25 mg p.o. every 12 hours -Imdur 60 mg p.o. daily -Nitroglycerin as needed -Keep magnesium greater than 2, keep potassium greater than 4 #Seizure disorder > Depakote level 52 on 02/06/19 -Continue Depakote 500 mg p.o. every 12 hours #History of DVT -Continue home Eliquis 5 mg p.o. twice daily #Schizophrenia #Depression -Continue home risperidone 2 mg p.o. daily -Continue home Lexapro 10 mg p.o. daily -Psychiatry consult -Ativan 0.5mg IV Q6hr PRN for anxiety agitation FENPPX DVTPPX: apixiban GI PPX: none needed Fluids: none Diet: Cardiac Lines: none PT/OT: pending Dispo: back to LVT once above issues resolved 37 Minutes spent on this encounter. Discussed with RN, Cardiology, Psychiatry, and patient. > 50% spent on counseling and care coordination. Time of note may not reflect time patient was seen. Subjective Date patient seen: Feb 06, 2019 Constitutional: Denies: chills, diaphoresis, fever, malaise, weakness, other HEENT: Denies: eye pain, blurred vision, tearing, double vision, ear pain, ear discharge, nose pain, nose congestion, throat pain, throat swelling, mouth pain , mouth swelling, other Cardiovascular: Denies: chest pain, edema, irregular heart rate, lightheadedness, palpitations, syncope, other Respiratory: Denies: cough, orthopnea, shortness of breath, SOB with excertion , SOB at rest, sputum, stridor, wheezing, other Gastrointestinal/Abdominal: Denies: abdomen distended, abdominal pain, black stools, tarry stools, blood in stool, constipated, diarrhea, difficulty swallowing, nausea, poor appetite, poor fluid intake, rectal bleeding, vomiting , other Genitourinary: Denies: burning, discharge, frequency, flank pain, hematuria, incontinence, pain, urgency, other Neurologic/Psychiatric: Denies: anxiety, depressed, emotional problems, headache, numbness, paresthesia, pre-existing deficit, seizure, tingling, tremors, weakness, other Endocrine: Denies: excessive sweating, flushing, intolerance to cold, intolerance to heat, increased hunger, increased thirst, increased urine, unexplained weight gain, unexplained weight loss, other Hematologic/Lymphatic: Denies: anemia, easy bleeding, easy bruising, other Allergies: Coded Allergies: FENTANYL (Unverified Allergy, Unknown, 02/05/19) Subjective No acute events overnight per nursing. patient denies any further chest pain. Troponin peaked at 2.349, now downtrending. With some agitation this morning given IV Ativan which helped. Denies cough shortness of breath fevers chills Objective Last 24 Hour Vital Signs Date Time Temp Pulse Resp B/P (MAP) Pulse Ox O2 Delivery O2 Flow Rate FiO2 02/06/19 09:00 110/65 02/06/19 09:00 58 110/65 02/06/19 08:00 97.4 58 18 110/65 (80) 96 02/06/19 06:57 109/65 02/06/19 04:00 54 02/06/19 04:00 97.5 56 18 109/65 (80) 97 02/06/19 00:00 97.5 54 18 107/68 (81) 97 02/06/19 00:00 53 02/05/19 21:30 62 109/64 02/05/19 21:00 Room Air 02/05/19 20:00 98.1 62 18 109/64 (79) 98 02/05/19 20:00 53 02/05/19 17:53 109/68 02/05/19 16:00 64 02/05/19 16:00 97.9 67 17 109/68 (82) 97 02/05/19 14:40 97.8 55 17 104/69 (81) 96 02/05/19 14:40 55 02/05/19 14:40 Room Air 02/05/19 14:20 97.9 59 14 103/69 99 Room Air 95 02/05/19 13:30 56 14 103/70 98 Room Air Intake and Output 02/05/19 02/06/19 19:00 07:00 Intake Total 1100 ml 480 ml Output Total 500 ml Balance 1100 ml -20 ml Intake Oral 100 ml 480 ml IV Total 1000 ml Output Urine Total 500 ml # Voids 3 Laboratory Tests 02/05/19 19:38: Troponin I 2.349H, Valproic Acid (Depakene) Level 52 02/06/19 03:10: Troponin I 2.326H, White Blood Count 8.4, Red Blood Count 5.05, Hemoglobin 15.4 , Hematocrit 44.7, Mean Corpuscular Volume 89, Mean Corpuscular Hemoglobin 30.4 , Mean Corpuscular Hemoglobin Concent 34.3, Red Cell Distribution Width 12.4, Platelet Count 204, Mean Platelet Volume 9.2, Neutrophils (%) (Auto) 44.5L, Lymphocytes (%) (Auto) 43.1, Monocytes (%) (Auto) 8.7, Eosinophils (%) (Auto) 2.3, Basophils (%) (Auto) 1.4, Sodium Level 145, Potassium Level 3.6, Chloride Level 109H, Carbon Dioxide Level 31, Anion Gap 5, Blood Urea Nitrogen 20H, Creatinine 0.9, Estimat Glomerular Filtration Rate > 60, Glucose Level 101, Calcium Level 8.9, Magnesium Level 1.7L, Triglycerides Level 76, Cholesterol Level 134, LDL Cholesterol 95, HDL Cholesterol 34L, Cholesterol/HDL Ratio 3.9 02/06/19 10:50: Troponin I 1.378H Height (Feet): 6 Height (Inches): 3.00 Weight (Pounds): 196 General Appearance: WD/WN, no apparent distress, alert, other - Patient easily becomes confused during conversation EENT: PERRL/EOMI, normal ENT inspection Neck: non-tender, normal alignment, supple Cardiovascular: normal peripheral pulses, normal rate, regular rhythm Respiratory/Chest: chest wall non-tender, lungs clear, normal breath sounds Abdomen: normal bowel sounds, non tender, soft, no mass Extremities: normal range of motion, non-tender, normal inspection Edema: other - No lower extremity edema bilaterally Neurologic: 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 Feb 06, 2019 13:15
--- NOTE | 2019-02-06 15:00 | NUR ---
NURSE NOTES: Per Dr. Madrid, patient is able to make his own decisions. In addition, Francisco Sanchez, brother, has a phone number of is able to do consent if need.
--- NOTE | 2019-02-06 15:23 | Cardiology Report ---
APPROVED REPORT EXAM: Two-dimensional and M-mode echocardiogram with Doppler and color Doppler. INDICATION Chest Pain M-Mode DIMENSIONS IVSd0.9 (0.7-1.1cm)Left Atrium (MM)3.3 (1.6-4.0cm) LVDd3.3 (3.5-5.6cm)Aortic Root4.3 (2.0-3.7cm) PWd1.2 (0.7-1.1cm)Aortic Cusp Exc.2.0 (1.5-2.0cm) IVSs0.9 cm LVDs1.9 (2.5-4.0cm) PWs1.2 cm Technically difficult study due to combative patient. Normal left ventricular chamber size, systolic function and wall motion to extent visualized. Left ventricular ejection fraction estimated to be 55-60%. No evidence of left ventricular hypertrophy . No evidence of pericardial effusion. All other cardiac chamber sizes are within normal limits. Focal aortic valve sclerosis with adequate cusp excursion. Thickened mitral valve leaflets with normal excursion. Mitral annulus and aortic root calcification. Normal pulmonic valve structure. Normal tricuspid valve structure. IVC at normal size with physiologic collapse. A color flow and spectral Doppler study was performed and revealed: No aortic regurgitation.. Trace mitral regurgitation. Mitral diastolic velocities suggest reduced left ventricular relaxation c/w mild LV diastolic dysfunction (Grade I ) Trace tricuspid regurgitation. Tricuspid systolic velocities suggests peak right ventricular systolic pressure of 9 mmH
--- NOTE | 2019-02-06 15:36 | NUR ---
AGENT SPA DESKCREDIT CHECKER 53 YO MALE BIBA FROM [facility] TO ER CC CHEST PAIN SINCE THIS AM ASA GIVEN SI: CHEST PAIN T. 97.5 HR 54 RR 16 B/P 90/56 TROP 0.395 2D ECHO= EF 55-60% IS: HEPARIN SUBC ASA PO MAGNESIUM IV K-DUR PO ADMITTED TO TELE @ 1420 TELE STATUS DCP RETURN TO [facility]
--- NOTE | 2019-02-06 15:55 | NUR ---
NURSE NOTES: Patient is resting in bed and cooperative.
[2019-02-06 16:00] VITALS: BP 114/76
--- NOTE | 2019-02-06 19:10 | NUR ---
HAND-OFF: Report given to FRANK Ludwig. Reminded patient that stress test is for tomorrow.
--- NOTE | 2019-02-06 19:15 | NUR ---
NURSE NOTES: Received report from FRANK Rodas. Patient in bed awake showing no signs of acute distress. No cp. AOx3 with episode of confusion. Respiration even and non labored on room air. No sob noted. IV on right FA 20g SL patent and intact. Bed in lowest position, wheels locked and alarm on. Side rails up x2. Call button within reach. All needs attended and met. Will continue plan of care.
[2019-02-06 20:00] VITALS: BP 124/79
[2019-02-06] MEDS: Atorvastatin 80mg tab ORAL SCH (20:42)
[2019-02-07] VITALS: BP 121/84
[2019-02-07] MEDS: LORazepam Inj 2mg/ml 1ml IV PRN ×2 (02:35→15:31)
[2019-02-07 04:00] VITALS: BP 117/73
[2019-02-07] MEDS: Nitroglycerin 2% oint pkt TOPIC SCH (06:51)
--- NOTE | 2019-02-07 07:30 | NUR ---
HAND-OFF: Report given to FRANK Levin.
[2019-02-07 07:31] LABS: BASOPHILS % (AUTO) 0.7 % (0.0-2.0); EOSINOPHILS % (AUTO) 1.9 % (0.0-3.0); HEMATOCRIT 44.9 % (42.0-52.0); HEMOGLOBIN 15.4 G/DL (14.2-18.0); MEAN CORPUSCULAR VOLUME 89 FL (80-99); MONOCYTES % (AUTO) 7.6 % (1.0-10.0); NEUTROPHILS % (AUTO) 52.8 % (45.0-75.0); PLATELET COUNT 181 K/UL (150-450); RED BLOOD COUNT 5.02 M/UL (4.70-6.10); RED CELL DISTRIBUTION WIDTH 12.8 % (11.6-14.8); WHITE BLOOD COUNT 8.8 K/UL (4.8-10.8)
--- NOTE | 2019-02-07 07:56 | NUR ---
NURSE NOTES: Patient stated he had 10/10 chest pain just prior to begin of shift--night RN (Oziel, RN() gave nitro patch scheduled and SL nitro x1 previous this RN starting shift. Oziel RN stated he is contacting Dr Guadalupe. Patient stated at bedside report that he felt "much better now" Patient found aox4 with calm, cooperative affect. Breathing easily on RA and no sign of telemetry changes. NPO with no caffeine cont'd. This RN saw Oliver from cardio stress test team who said he talked to patient already and was letting Dr Velasquez know---Dr Velasquez to decide if patient will have stress test today (scheduled for afternoon). Oliver stated ok to give small snack this morning like jello/applessauce wtih meds. Bed in lowest , locked postion and bed alarm on--demonstrated call andrews to patient and is in reach.Urinal in reach. Continuing frequent bedside assessments.
[2019-02-07 08:00] VITALS: BP 107/74
[2019-02-07 08:06] LABS: ANION GAP 8 mmol/L (5-15); BLOOD UREA NITROGEN 23 mg/dL (7-18); CALCIUM 8.8 MG/DL (8.5-10.1); CARBON DIOXIDE 24 MMOL/L (21-32); CHLORIDE 111 MMOL/L (98-107); CREATININE 0.8 MG/DL (0.55-1.30); POTASSIUM 4.1 MMOL/L (3.5-5.1); SODIUM 143 MMOL/L (136-145)
[2019-02-07] MEDS: Metoprolol 25mg tab ORAL SCH ×2 (08:41→20:27)
[2019-02-07] MEDS: Docusate 100mg cap ORAL SCH ×2 (08:54→11:17)
[2019-02-07] MEDS: Aspirin EC 325mg tab ORAL SCH ×2 (08:54→11:18)
[2019-02-07] MEDS: Depakote 500mg tab ORAL SCH ×2 (08:54→11:20)
[2019-02-07] MEDS: Eliquis 5mg tablet ORAL SCH ×2 (08:55→11:18)
[2019-02-07] MEDS: Imdur 30mg tab ORAL SCH ×2 (08:57→11:18)
--- NOTE | 2019-02-07 08:58 | NUR ---
NURSE NOTES: Patient swatted this RN's hand during gentle shaking to wake up when Hector from stress test in room to explain stress test. Informed rn charge. No injury to RN--patient didn't hit hard.
--- NOTE | 2019-02-07 09:02 | NUR ---
NURSE NOTES: Oliver from cardiac called at 0855am to say that Dr Velasquez is cancelling the stress test d/t earlier chest pain and in light of troponin.
--- NOTE | 2019-02-07 09:03 | NUR ---
NURSE NOTES: Multiple attempts to give a.m. meds but patient refused despite reorientation and emotional support and active listening. When awoken patient was pleasant this time, but spit out meds and then adamantly refused stating "I don't feel up to it now" Patient denies chest pain, but stated "I am sleeping now. You're not going to listen to me? I said no!" Addendum: 02/07/19 at 09 by Duong Polanco RN This RN to attempt meds again soon. Patient just now transported with Hector from stress test. Oliver said he was calling Hector toupdate him that test cancelled per Dr Velasquez Addendum: 02/07/19 at 0915 by Duong Polanco RN Wasted depakote, lexapro and eliquis in pyxis (since they were already removed from package in attempt to give them. and returned all other 9am meds to pyxis.
[2019-02-07 12:00] VITALS: BP 103/57
--- NOTE | 2019-02-07 12:45 | NUR ---
NURSE NOTES: at 1230pm Patient with BP of 103/57 , denies chest pain, 64bpm and SR on telemetry. Dr Galvan ordered change of nitro paste to PRN for chest pain. Dr Galvan also stated he did not want to order troponin now since Dr Guadalupe aware of this morning's chest pain and would be rounding on patient soon. Awaiting Dr Guadalupe's assessment of patient before more labs drawn.
--- NOTE | 2019-02-07 14:19 | Cardiac Electrophysiology PN ---
Assessment/Plan Assessment/Plan 1. NSTEMI with troponin peak of only 2.3 that is down to 1.3 in a patient with Hx of CABG. No CP or SOB. No acute ECG changes. Echo Nl EF. Reschedule for nuclear stress test If significant ischemia will need Cardiac cath. Continue medical therapy with aspirin, Plavix, Lopressor, Lipitor and Isordil Already on Eliquis for DVT also 2. HTN 3. Schizophrenia 4. UE DVT on Eliquis 5. CVA with Left hemiplegia DW Dr. Galvan Subjective Subjective No CP or SOB. Stress test rescheduled for tomorrow for questionable CP but patient now denies. Remained in SR and Echo Nl EF Objective Last 24 Hour Vital Signs Date Time Temp Pulse Resp B/P (MAP) Pulse Ox O2 Delivery O2 Flow Rate FiO2 02/07/19 12:00 97.5 64 20 103/57 (72) 96 02/07/19 12:00 59 02/07/19 11:18 107/74 02/07/19 09:00 Room Air 02/07/19 08:57 107/74 02/07/19 08:41 61 107/74 02/07/19 08:00 57 02/07/19 08:00 97.3 61 22 107/74 (85) 94 02/07/19 06:55 117/73 02/07/19 06:51 117/73 02/07/19 04:00 61 02/07/19 04:00 98.0 55 20 117/73 (88) 94 02/07/19 00:00 98.4 54 20 121/84 (96) 95 02/07/19 00:00 56 02/06/19 21:00 Room Air 02/06/19 20:44 59 124/79 02/06/19 20:00 98.4 59 20 124/79 (94) 97 02/06/19 20:00 67 02/06/19 17:52 114/76 02/06/19 16:00 97.9 58 18 114/76 (89) 98 02/06/19 15:16 57 Intake and Output 02/06/19 02/07/19 19:00 07:00 Intake Total 600 ml 480 ml Output Total 900 ml 700 ml Balance -300 ml -220 ml Intake Oral 600 ml 480 ml Output Urine Total 900 ml 700 ml # Voids 2 Laboratory Tests Test 02/06/19 18:47 02/07/19 05:19 Troponin I 0.715 ng/mL (0.000-0.056) White Blood Count 8.8 K/UL (4.8-10.8) Red Blood Count 5.02 M/UL (4.70-6.10) Hemoglobin 15.4 G/DL (14.2-18.0) Hematocrit 44.9 % (42.0-52.0) Mean Corpuscular Volume 89 FL (80-99) Mean Corpuscular Hemoglobin 30.6 PG (27.0-31.0) Mean Corpuscular Hemoglobin Concent 34.3 G/DL (32.0-36.0) Red Cell Distribution Width 12.8 % (11.6-14.8) Platelet Count 181 K/UL (150-450) Mean Platelet Volume 8.6 FL (6.5-10.1) Neutrophils (%) (Auto) 52.8 % (45.0-75.0) Lymphocytes (%) (Auto) 37.0 % (20.0-45.0) Monocytes (%) (Auto) 7.6 % (1.0-10.0) Eosinophils (%) (Auto) 1.9 % (0.0-3.0) Basophils (%) (Auto) 0.7 % (0.0-2.0) Sodium Level 143 MMOL/L (136-145) Potassium Level 4.1 MMOL/L (3.5-5.1) Chloride Level 111 MMOL/L (98-107) H Carbon Dioxide Level 24 MMOL/L (21-32) Anion Gap 8 mmol/L (5-15) Blood Urea Nitrogen 23 mg/dL (7-18) H Creatinine 0.8 MG/DL (0.55-1.30) Estimat Glomerular Filtration Rate > 60 mL/min (>60) Glucose Level 75 MG/DL (74-106) Calcium Level 8.8 MG/DL (8.5-10.1) Magnesium Level 2.1 MG/DL (1.8-2.4) Microbiology Date/Time Source Procedure Growth Status 02/05/19 13:00 Nasal Nares MRSA Culture - Final NO METHICILLIN RESISTANT STAPH AUREUS... Complete Objective HEENT: No JVD LUNGS: Clear CVS:Sternotomy intact Abdomen Soft EXT: No edema Johnny Guadalupe MD Feb 07, 2019 14:19
--- NOTE | 2019-02-07 15:38 | NUR ---
NURSE NOTES: Asked Dr. Madrid to review Ativan order. Pt continues to state he is "scared" and continuously tries to get out of bed, pt is restless and not easily consoled with conversation and reorientation.
[2019-02-07] MEDS ORDERED: LORazepam 1mg tab ORAL PRN (15:48)
--- NOTE | 2019-02-07 15:48 | General Progress Note ---
Assessment/Plan Problem List: (1) NSTEMI (non-ST elevated myocardial infarction) ICD Codes: I21.4 - Non-ST elevation (NSTEMI) myocardial infarction SNOMED: 83241217 (2) CAD (coronary artery disease) ICD Codes: I25.10 - Atherosclerotic heart disease of [place] coronary artery without angina pectoris SNOMED: 05236336 (3) HTN (hypertension) ICD Codes: I10 - Essential (primary) hypertension SNOMED: 24998042 (4) History of DVT (deep vein thrombosis) ICD Codes: Z86.718 - Personal history of other venous thrombosis and embolism SNOMED: 836690286 (5) Schizophrenia ICD Codes: F20.9 - Schizophrenia, unspecified SNOMED: 28547023 (6) Non-compliance with treatment ICD Codes: Z91.19 - Patient's noncompliance with other medical treatment and regimen SNOMED: 4078274 Status: stable Assessment/Plan: Is a 53-year-old male with a past medical history of CAD status post CABG, tobacco use, history of DVT, who presents with NSTEMI. #NSTEMI. Troponin peaked 2.3. Now downtrending #CAD status post CABG #Hypertension > Status post Plavix 300 mg x 1 and Lovenox 100 mg subcu > Chest x-ray negative > Echo 02/05/19 shows ejection fraction 55 to 60%. no focal wall motion abnormalities. -Admit to telemetry -Appreciate cardiology recommendations: Dr. Guadalupe -stress test ordered. Rescheduled for tomorrow as patient complained of chest pain although he did deny. -Aspirin 81 mg p.o. daily -Atorvastatin 80 mg p.o. nightly -Metoprolol tartrate 25 mg p.o. every 12 hours -Imdur 60 mg p.o. daily -Nitroglycerin as needed -Keep magnesium greater than 2, keep potassium greater than 4 #Seizure disorder > Depakote level 52 on 02/06/19 -Continue Depakote 500 mg p.o. every 12 hours #History of DVT -Continue home Eliquis 5 mg p.o. twice daily #Schizophrenia #Depression -Continue home risperidone 2 mg p.o. daily -Continue home Lexapro 10 mg p.o. daily -Psychiatry consult -Ativan 0.5mg IV Q6hr PRN for anxiety agitation FENPPX DVTPPX: apixiban GI PPX: none needed Fluids: none Diet: Cardiac Lines: none PT/OT: pending Dispo: back to LVT once above issues resolved 36 Minutes spent on this encounter. Discussed with RN, Cardiology, Psychiatry, and patient. > 50% spent on counseling and care coordination. Time of note may not reflect time patient was seen. Subjective Date patient seen: Feb 07, 2019 Constitutional: Denies: chills, diaphoresis, fever, malaise, weakness, other HEENT: Denies: eye pain, blurred vision, tearing, double vision, ear pain, ear discharge, nose pain, nose congestion, throat pain, throat swelling, mouth pain , mouth swelling, other Cardiovascular: Denies: chest pain, edema, irregular heart rate, lightheadedness, palpitations, syncope, other Respiratory: Denies: cough, orthopnea, shortness of breath, SOB with excertion , SOB at rest, sputum, stridor, wheezing, other Gastrointestinal/Abdominal: Denies: abdomen distended, abdominal pain, black stools, tarry stools, blood in stool, constipated, diarrhea, difficulty swallowing, nausea, poor appetite, poor fluid intake, rectal bleeding, vomiting , other Genitourinary: Denies: burning, discharge, frequency, flank pain, hematuria, incontinence, pain, urgency, other Neurologic/Psychiatric: Denies: anxiety, depressed, emotional problems, headache, numbness, paresthesia, pre-existing deficit, seizure, tingling, tremors, weakness, other Endocrine: Denies: excessive sweating, flushing, intolerance to cold, intolerance to heat, increased hunger, increased thirst, increased urine, unexplained weight gain, unexplained weight loss, other Hematologic/Lymphatic: Denies: anemia, easy bleeding, easy bruising, other Allergies: Coded Allergies: FENTANYL (Unverified Allergy, Unknown, 02/05/19) Subjective No acute events overnight per nursing. Patient complained of some chest pain last night she was given nitroglycerin and it resolved. Upon questioning the patient this morning the patient does not recall ever having chest pain. The stress test was canceled because of this chest pain and rescheduled for tomorrow. Denies cough shortness of breath fevers chills Objective Last 24 Hour Vital Signs Date Time Temp Pulse Resp B/P (MAP) Pulse Ox O2 Delivery O2 Flow Rate FiO2 02/07/19 12:00 97.5 64 20 103/57 (72) 96 02/07/19 12:00 59 02/07/19 11:18 107/74 02/07/19 09:00 Room Air 02/07/19 08:57 107/74 02/07/19 08:41 61 107/74 02/07/19 08:00 57 02/07/19 08:00 97.3 61 22 107/74 (85) 94 02/07/19 06:55 117/73 02/07/19 06:51 117/73 02/07/19 04:00 61 02/07/19 04:00 98.0 55 20 117/73 (88) 94 02/07/19 00:00 98.4 54 20 121/84 (96) 95 02/07/19 00:00 56 02/06/19 21:00 Room Air 02/06/19 20:44 59 124/79 02/06/19 20:00 98.4 59 20 124/79 (94) 97 02/06/19 20:00 67 02/06/19 17:52 114/76 02/06/19 16:00 97.9 58 18 114/76 (89) 98 Intake and Output 02/06/19 02/07/19 19:00 07:00 Intake Total 600 ml 480 ml Output Total 900 ml 700 ml Balance -300 ml -220 ml Intake Oral 600 ml 480 ml Output Urine Total 900 ml 700 ml # Voids 2 Laboratory Tests 02/06/19 18:47: Troponin I 0.715H 02/07/19 05:19: White Blood Count 8.8, Red Blood Count 5.02, Hemoglobin 15.4, Hematocrit 44.9, Mean Corpuscular Volume 89, Mean Corpuscular Hemoglobin 30.6, Mean Corpuscular Hemoglobin Concent 34.3, Red Cell Distribution Width 12.8, Platelet Count 181, Mean Platelet Volume 8.6, Neutrophils (%) (Auto) 52.8, Lymphocytes (%) (Auto) 37.0, Monocytes (%) (Auto) 7.6, Eosinophils (%) (Auto) 1.9, Basophils (%) (Auto ) 0.7, Sodium Level 143, Potassium Level 4.1, Chloride Level 111H, Carbon Dioxide Level 24, Anion Gap 8, Blood Urea Nitrogen 23H, Creatinine 0.8, Estimat Glomerular Filtration Rate > 60, Glucose Level 75, Calcium Level 8.8, Magnesium Level 2.1 Height (Feet): 6 Height (Inches): 3.00 Weight (Pounds): 195 General Appearance: WD/WN, no apparent distress, alert EENT: PERRL/EOMI, normal ENT inspection Neck: non-tender, normal alignment, supple Cardiovascular: normal peripheral pulses, normal rate, regular rhythm, no JVD Respiratory/Chest: chest wall non-tender, lungs clear, normal breath sounds Abdomen: normal bowel sounds, non tender, soft, no organomegaly, no mass Extremities: normal range of motion, non-tender, normal inspection Edema: other - No lower extremity edema bilaterally 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 Feb 07, 2019 15:48
[2019-02-07 16:00] VITALS: BP 112/60
[2019-02-07] MEDS ORDERED: Eliquis 5mg tablet ORAL SCH (18:30)
--- NOTE | 2019-02-07 18:48 | NUR ---
NURSE NOTES: 6pm eliquis and 9pm depakote--spoke with pharmacy to rectify the mistake this RN made charting against the evening dosage times for these two meds.. Pharmacy instructed RN to place once orders of each and next time patient refuses a med and then agrees to take it later,the RN should "undo" the "refusal" fromthe first attempt. Endorse to kip RN regarding 9pm depakote.
--- NOTE | 2019-02-07 19:10 | NUR ---
Received report from Ollie MARIE. Patient is AO x2. Sitting in the bed. Reinforced that has to stay in the bed and ask for help by using call light. Bed is locked rails are up x3. Call light is at pt reach. Denies any pain or discomfort at this time.
[2019-02-07 20:00] VITALS: BP 122/50
--- NOTE | 2019-02-07 20:09 | NUR ---
NURSE NOTES: Report given to FRANK Escalante. Patient confused and forgetful requiring reorientation frequently. Bed alarm on and prns given to keep patient safe. Bed in lowest, locked position. Snacks given tonight RN to placate patient when agitated as was effective during day shift today. Emotional support andactive listening and many reorienting efforts needed by this patient. Denies chest pain. Call andrews and urinal in reach.
[2019-02-07] MEDS: Atorvastatin 80mg tab ORAL SCH (20:26)
[2019-02-07] MEDS ORDERED: Depakote 500mg tab ORAL SCH (21:00)
[2019-02-08] VITALS: BP 126/55
[2019-02-08 04:00] VITALS: BP 115/71
[2019-02-08 07:30] LABS: ANION GAP 12 mmol/L (5-15); BLOOD UREA NITROGEN 26 mg/dL (7-18); CARBON DIOXIDE 21 MMOL/L (21-32); CHLORIDE 110 MMOL/L (98-107); CREATININE 0.8 MG/DL (0.55-1.30); POTASSIUM 4.2 MMOL/L (3.5-5.1); SODIUM 143 MMOL/L (136-145)
--- NOTE | 2019-02-08 07:49 | NUR ---
HAND-OFF: Report given to Roxy MARIE.
--- NOTE | 2019-02-08 07:58 | NUR ---
NURSE NOTES: Received report from Dawn Ballard. PAtient is awake awake and alert in bed. VSS. patient NPO for stress test today. Reminded re: safety precautions. side rails X2 up. Call andrews within patients reached bed locked and low position. bed alarm activated.will follow.
--- NOTE | 2019-02-08 08:30 | NUR ---
NURSE NOTES: Spoke with Oliver from Cardiology. Patient for stress test today. he said he will speak with Dr. Milligan because patients troponin still elevated. will follow.
--- NOTE | 2019-02-08 08:30 | NUR ---
NURSE NOTES: Dr. Milligan Ordered stat Troponin. will follow
[2019-02-08 09:00] VITALS: BP 124/87
[2019-02-08] MEDS: Metoprolol 25mg tab ORAL SCH ×2 (09:00→20:11)
--- NOTE | 2019-02-08 09:01 | Cardiac Electrophysiology PN ---
Assessment/Plan Assessment/Plan 1. NSTEMI with troponin peak of only 2.3 that is down to 0.7 in a patient with Hx of CABG. No CP or SOB. No acute ECG changes. Echo Nl EF. Awaiting nuclear stress test today If significant ischemia will need Cardiac cath. Continue aspirin, Lopressor, Lipitor and Isordil Also on Eliquis for DVT 2. HTN 3. Schizophrenia 4. UE DVT on Eliquis 5. CVA with Left hemiplegia DW RN and Dr. Galvan Subjective Subjective No CP or SOB. Stress test rescheduled for today. Remained in SR and Echo Nl EF Objective Last 24 Hour Vital Signs Date Time Temp Pulse Resp B/P (MAP) Pulse Ox O2 Delivery O2 Flow Rate FiO2 02/08/19 04:00 77 02/08/19 04:00 97.4 77 20 115/71 (86) 97 02/08/19 00:00 97.8 76 20 126/55 (78) 95 02/08/19 00:00 75 02/07/19 21:00 Room Air 02/07/19 20:27 80 100/60 02/07/19 20:00 98.2 78 18 122/50 (74) 95 02/07/19 20:00 75 02/07/19 16:00 98.0 68 22 112/60 (77) 98 02/07/19 16:00 68 02/07/19 12:00 97.5 64 20 103/57 (72) 96 02/07/19 12:00 59 02/07/19 11:18 107/74 02/07/19 09:00 Room Air Intake and Output 02/07/19 02/08/19 19:00 07:00 Intake Total 650 ml Output Total 1200 ml 400 ml Balance -550 ml -400 ml Intake Oral 650 ml Output Urine Total 1200 ml 400 ml # Voids 2 2 # Bowel Movements 2 Laboratory Tests Test 02/08/19 06:26 Sodium Level 143 MMOL/L (136-145) Potassium Level 4.2 MMOL/L (3.5-5.1) Chloride Level 110 MMOL/L (98-107) H Carbon Dioxide Level 21 MMOL/L (21-32) Anion Gap 12 mmol/L (5-15) Blood Urea Nitrogen 26 mg/dL (7-18) H Creatinine 0.8 MG/DL (0.55-1.30) Estimat Glomerular Filtration Rate > 60 mL/min (>60) Glucose Level 95 MG/DL (74-106) Calcium Level 9.0 MG/DL (8.5-10.1) Magnesium Level 2.0 MG/DL (1.8-2.4) Microbiology Date/Time Source Procedure Growth Status 02/05/19 13:00 Nasal Nares MRSA Culture - Final NO METHICILLIN RESISTANT STAPH AUREUS... Complete Objective HEENT: No JVD LUNGS: Clear CVS:Sternotomy intact Abdomen Soft EXT: No edema Johnny Guadalupe MD Feb 08, 2019 09:01
[2019-02-08] MEDS: Depakote 500mg tab ORAL SCH ×2 (09:25→20:13)
[2019-02-08] MEDS: Aspirin EC 325mg tab ORAL SCH (09:25)
[2019-02-08] MEDS: Docusate 100mg cap ORAL SCH (09:25)
[2019-02-08] MEDS: Eliquis 5mg tablet ORAL SCH ×2 (09:26→17:15)
[2019-02-08] MEDS ORDERED: Lexiscan 0.4mg/5ml syringe IV PRN (10:00)
--- NOTE | 2019-02-08 10:00 | NUR ---
NURSE NOTES: Patient noted to have stye on his left eye. patient said it doesnt really bother him. Doctor Roma made aware. new order received for warm compress QID.
--- NOTE | 2019-02-08 10:19 | NUR ---
CARDIOLOGY Informed Dr. Milligan about the latest Troponin this morning down to 0.352 but he still refused to do Lexiscan. He recommended Cath instead.
--- NOTE | 2019-02-08 11:47 | NUR ---
NURSE NOTES: Spoke with Hugh of cardiology. stated that Dr. Milligan aware of the STAT troponin result. troponin still elevated as per MD. will consider stress test in Am.
[2019-02-08 12:00] VITALS: BP 118/81
[2019-02-08] MEDS ORDERED: Tubing IV Secondary IV ONE (14:10)
[2019-02-08] MEDS ORDERED: NS 275ml ONE (14:10)
--- NOTE | 2019-02-08 15:11 | General Progress Note ---
Assessment/Plan Problem List: (1) NSTEMI (non-ST elevated myocardial infarction) ICD Codes: I21.4 - Non-ST elevation (NSTEMI) myocardial infarction SNOMED: 00572910 (2) CAD (coronary artery disease) ICD Codes: I25.10 - Atherosclerotic heart disease of [place] coronary artery without angina pectoris SNOMED: 56026896 (3) HTN (hypertension) ICD Codes: I10 - Essential (primary) hypertension SNOMED: 88633791 (4) History of DVT (deep vein thrombosis) ICD Codes: Z86.718 - Personal history of other venous thrombosis and embolism SNOMED: 285504390 (5) Schizophrenia ICD Codes: F20.9 - Schizophrenia, unspecified SNOMED: 02906236 (6) Non-compliance with treatment ICD Codes: Z91.19 - Patient's noncompliance with other medical treatment and regimen SNOMED: 5152021 Status: stable Assessment/Plan: Is a 53-year-old male with a past medical history of CAD status post CABG, tobacco use, history of DVT, who presents with NSTEMI. #NSTEMI. Troponin peaked 2.3. Now downtrending #CAD status post CABG #Hypertension > Status post Plavix 300 mg x 1 and Lovenox 100 mg subcu > Chest x-ray negative > Echo 02/05/19 shows ejection fraction 55 to 60%. no focal wall motion abnormalities. > CXR: no acute process -Admit to telemetry -Appreciate cardiology recommendations: Dr. Guadalupe -stress test ordered. Rescheduled for tomorrow as troponin was still slightly elevated. -Aspirin 81 mg p.o. daily -Atorvastatin 80 mg p.o. nightly -Metoprolol tartrate 25 mg p.o. every 12 hours -Imdur 60 mg p.o. daily -Nitroglycerin as needed -Keep magnesium greater than 2, keep potassium greater than 4 #Seizure disorder > Depakote level 52 on 02/06/19 -Continue Depakote 500 mg p.o. every 12 hours #History of DVT -Continue home Eliquis 5 mg p.o. twice daily #Schizophrenia #Depression -Continue home risperidone 2 mg p.o. daily -Continue home Lexapro 10 mg p.o. daily -Psychiatry consult -Ativan 0.5mg IV Q6hr PRN for anxiety agitation #Left eye stye -Warm compresses -Continue to monitor FENPPX DVTPPX: apixiban GI PPX: none needed Fluids: none Diet: Cardiac Lines: none PT/OT: pending Dispo: back to LVT once above issues resolved 37 Minutes spent on this encounter. Discussed with RN, Cardiology, Psychiatry, and patient. > 50% spent on counseling and care coordination. Time of note may not reflect time patient was seen. Subjective Date patient seen: Feb 08, 2019 Constitutional: Denies: no symptoms, chills, diaphoresis, fever, malaise, weakness, other HEENT: Denies: eye pain, blurred vision, tearing, double vision, ear pain, ear discharge, nose pain, nose congestion, throat pain, throat swelling, mouth pain , mouth swelling, other Cardiovascular: Denies: chest pain, edema, irregular heart rate, lightheadedness, palpitations, syncope, other Respiratory: Denies: cough, orthopnea, shortness of breath, SOB with excertion , SOB at rest, sputum, stridor, wheezing, other Gastrointestinal/Abdominal: Denies: abdomen distended, abdominal pain, black stools, tarry stools, blood in stool, constipated, diarrhea, difficulty swallowing, nausea, poor appetite, poor fluid intake, rectal bleeding, vomiting , other Genitourinary: Denies: burning, discharge, frequency, flank pain, hematuria, incontinence, pain, urgency, other Neurologic/Psychiatric: Denies: anxiety, depressed, emotional problems, headache, numbness, paresthesia, pre-existing deficit, seizure, tingling, tremors, weakness, other Endocrine: Denies: excessive sweating, flushing, intolerance to cold, intolerance to heat, increased hunger, increased thirst, increased urine, unexplained weight gain, unexplained weight loss, other Hematologic/Lymphatic: Denies: anemia, easy bleeding, easy bruising, other Allergies: Coded Allergies: FENTANYL (Unverified Allergy, Unknown, 02/05/19) Subjective No acute events overnight per nursing. Chest pain: Patient denies having any chest pain today. Stress test once again canceled due to elevated troponin. He denies any fevers chills cough or shortness of breath Stye: Left eye or the past week with no discharge or pain just some discomfort. Constant. 5 out of 10. He does have a history of a stye Objective Last 24 Hour Vital Signs Date Time Temp Pulse Resp B/P (MAP) Pulse Ox O2 Delivery O2 Flow Rate FiO2 02/08/19 12:00 97.7 65 18 118/81 (93) 98 02/08/19 12:00 69 02/08/19 09:00 97.7 64 18 124/87 (99) 99 02/08/19 09:00 Room Air 02/08/19 08:00 63 02/08/19 04:00 77 02/08/19 04:00 97.4 77 20 115/71 (86) 97 02/08/19 00:00 97.8 76 20 126/55 (78) 95 02/08/19 00:00 75 02/07/19 21:00 Room Air 02/07/19 20:27 80 100/60 02/07/19 20:00 98.2 78 18 122/50 (74) 95 02/07/19 20:00 75 02/07/19 16:00 98.0 68 22 112/60 (77) 98 02/07/19 16:00 68 Intake and Output 02/07/19 02/08/19 18:59 06:59 Intake Total 650 ml Output Total 1200 ml 400 ml Balance -550 ml -400 ml Intake Oral 650 ml Output Urine Total 1200 ml 400 ml # Voids 2 2 # Bowel Movements 2 Laboratory Tests 02/08/19 06:26: Sodium Level 143, Potassium Level 4.2, Chloride Level 110H, Carbon Dioxide Level 21, Anion Gap 12, Blood Urea Nitrogen 26H, Creatinine 0.8, Estimat Glomerular Filtration Rate > 60, Glucose Level 95, Calcium Level 9.0, Magnesium Level 2.0, Troponin I 0.352H Height (Feet): 6 Height (Inches): 3.00 Weight (Pounds): 195 General Appearance: WD/WN, no apparent distress, alert EENT: PERRL/EOMI, normal ENT inspection, other - Left superior eyelid is slightly erythematous and swollen with no drainage Neck: non-tender, normal alignment, supple Cardiovascular: normal peripheral pulses, normal rate, regular rhythm, no JVD Respiratory/Chest: chest wall non-tender, lungs clear, normal breath sounds, no accessory muscle use Abdomen: normal bowel sounds, non tender, soft, no organomegaly, no mass Extremities: normal range of motion, non-tender, normal inspection 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 Feb 08, 2019 15:11
[2019-02-08 16:00] VITALS: BP 133/93
[2019-02-08] MEDS ORDERED: LEXAPRO10 MG ORAL (18:57)
[2019-02-08] MEDS ORDERED: ACETAMINOPHEN325 M1 ORAL (18:57)
--- NOTE | 2019-02-08 19:25 | NUR ---
HAND-OFF: Report given to Dawn Zuleta. Patient stable. Plan of care endorsed.
--- NOTE | 2019-02-08 19:30 | NUR ---
NURSE NOTES: Received patient from Kalani MARIE. Patient in bed, on room air, no s/s of respiratory distress. Bed in low position, locked, bed alarm on, call light within reach.
[2019-02-08 20:00] VITALS: BP 114/77
[2019-02-08] MEDS: Atorvastatin 80mg tab ORAL SCH (20:13)
[2019-02-09] VITALS: BP 124/88
[2019-02-09] MEDS: LORazepam Inj 2mg/ml 1ml IV PRN ×2 (01:01→18:50)
[2019-02-09 04:00] VITALS: BP 130/91
--- NOTE | 2019-02-09 07:10 | NUR ---
NURSE NOTES: Received report from FRANK Zuleta. Patient is AAO x 2. Patient is breathing even and unlabored on room air. Patient is on front desk monitor. patient denies pain at this time. Patient is NPO for stress test today. Reminded re: safety precautions. side rails X2 up. Call andrews within patients reached bed locked and low position. bed alarm activated. Will continue plan of care.
[2019-02-09 07:28] LABS: ANION GAP 10 mmol/L (5-15); BLOOD UREA NITROGEN 18 mg/dL (7-18); CALCIUM 9.2 MG/DL (8.5-10.1); CARBON DIOXIDE 24 MMOL/L (21-32); CHLORIDE 110 MMOL/L (98-107); CREATININE 0.8 MG/DL (0.55-1.30); POTASSIUM 4.3 MMOL/L (3.5-5.1); SODIUM 144 MMOL/L (136-145)
--- NOTE | 2019-02-09 07:38 | NUR ---
HAND-OFF: Report given to Clark MARIE. Plan of care endorsed.
[2019-02-09 08:00] VITALS: BP 113/79
[2019-02-09] MEDS: Imdur 30mg tab ORAL SCH (09:00)
[2019-02-09] MEDS: Metoprolol 25mg tab ORAL SCH ×2 (09:00→20:22)
[2019-02-09] MEDS: Aspirin EC 325mg tab ORAL SCH (09:48)
[2019-02-09] MEDS: Docusate 100mg cap ORAL SCH (09:48)
[2019-02-09] MEDS: Depakote 500mg tab ORAL SCH ×2 (09:48→20:23)
[2019-02-09] MEDS: Eliquis 5mg tablet ORAL SCH ×2 (09:49→18:00)
[2019-02-09] MEDS ORDERED: Lexiscan 0.4mg/5ml syringe IV PRN (10:15)
[2019-02-09 12:00] VITALS: BP 131/84
[2019-02-09] MEDS ORDERED: ASPIR-TRIN325 M1 ORAL (13:35)
[2019-02-09] MEDS ORDERED: ERYTHROMYCIN3.5 GM LEFT EYE (13:35)
[2019-02-09] MEDS: Erythromycin Opth Ointment 3.5gm LEFT EYE SCH ×3 (14:04→20:23)
--- NOTE | 2019-02-09 14:19 | NUR ---
NM Myocardial Perfusion scan complete.
--- NOTE | 2019-02-09 15:52 | Cardiac Electrophysiology PN ---
Assessment/Plan Assessment/Plan 1. NSTEMI with troponin peak of only 2.3 that is down to 0.7 in a patient with Hx of CABG. No CP or SOB. No acute ECG changes. Echo Nl EF. Awaiting nuclear stress test report today If significant ischemia will need Cardiac cath. Continue aspirin, Lopressor, Lipitor and Isordil 2. HTN 3. Schizophrenia 4. UE DVT on Eliquis 5. CVA with Left hemiplegia DW RN Subjective Subjective No CP or SOB. Stress test was done today. Remained in SR and Echo Nl EF Objective Last 24 Hour Vital Signs Date Time Temp Pulse Resp B/P (MAP) Pulse Ox O2 Delivery O2 Flow Rate FiO2 02/09/19 12:00 97.5 49 20 131/84 (100) 97 02/09/19 09:00 113/79 02/09/19 09:00 54 113/79 02/09/19 09:00 Room Air 02/09/19 08:00 97.7 54 18 113/79 (90) 97 02/09/19 07:42 57 02/09/19 04:00 97.8 60 21 130/91 (104) 93 02/09/19 04:00 62 02/09/19 00:00 97.6 83 20 124/88 (100) 95 02/09/19 00:00 75 02/08/19 21:00 Room Air 02/08/19 20:11 91 114/71 02/08/19 20:00 98.7 91 19 114/77 (89) 95 02/08/19 20:00 89 02/08/19 16:00 84 02/08/19 16:00 97.4 74 18 133/93 (106) 97 Intake and Output 02/08/19 02/09/19 18:59 06:59 Output Total 600 ml 300 ml Balance -600 ml -300 ml Output Urine Total 600 ml 300 ml # Voids 3 Laboratory Tests Test 02/09/19 06:39 Sodium Level 144 MMOL/L (136-145) Potassium Level 4.3 MMOL/L (3.5-5.1) Chloride Level 110 MMOL/L (98-107) H Carbon Dioxide Level 24 MMOL/L (21-32) Anion Gap 10 mmol/L (5-15) Blood Urea Nitrogen 18 mg/dL (7-18) Creatinine 0.8 MG/DL (0.55-1.30) Estimat Glomerular Filtration Rate > 60 mL/min (>60) Glucose Level 82 MG/DL (74-106) Calcium Level 9.2 MG/DL (8.5-10.1) Magnesium Level 2.0 MG/DL (1.8-2.4) Objective HEENT: No JVD LUNGS: Clear CVS:Sternotomy intact Abdomen Soft EXT: No edema Johnny Guadalupe MD Feb 09, 2019 15:52
[2019-02-09 16:00] VITALS: BP 105/74
--- NOTE | 2019-02-09 16:39 | Diagnostic Imaging Report ---
Indications: Chest pain Technique: See cardiology report for details of LexiScan stress testing. During LexiScan infusion, IV administration 32.4 mCi 99 M technetium Myoview. SPECT and planar images obtained. SPECT images gated to 8 phases of the cardiac cycle were also obtained, and reformatted into cine images for evaluation of ejection fraction. On the subsequent day, resting images obtained using IV administration of 11 mCi 99 M technetium Myoview. Comparison:none Findings: Clinical response to pharmacologic stress was reported at nonischemic. The electrocardiographic response to pharmacologic stress was reported as nonischemic. Perfusion images demonstrate a inferior wall infarct with possible small focus of ezequiel-infarct ischemia. IMPRESSION: Inferior wall infarct with possible ezequiel-infarct ischemia. Please correlate clinically.
--- NOTE | 2019-02-09 16:45 | General Progress Note ---
Assessment/Plan Problem List: (1) NSTEMI (non-ST elevated myocardial infarction) ICD Codes: I21.4 - Non-ST elevation (NSTEMI) myocardial infarction SNOMED: 89298806 (2) CAD (coronary artery disease) ICD Codes: I25.10 - Atherosclerotic heart disease of [place] coronary artery without angina pectoris SNOMED: 01840008 (3) HTN (hypertension) ICD Codes: I10 - Essential (primary) hypertension SNOMED: 19202884 (4) History of DVT (deep vein thrombosis) ICD Codes: Z86.718 - Personal history of other venous thrombosis and embolism SNOMED: 095484296 (5) Schizophrenia ICD Codes: F20.9 - Schizophrenia, unspecified SNOMED: 62080760 (6) Non-compliance with treatment ICD Codes: Z91.19 - Patient's noncompliance with other medical treatment and regimen SNOMED: 4369653 Status: stable Assessment/Plan: Is a 53-year-old male with a past medical history of CAD status post CABG, tobacco use, history of DVT, who presents with NSTEMI. #NSTEMI. Troponin peaked 2.3. Now downtrending #CAD status post CABG #Hypertension > Status post Plavix 300 mg x 1 and Lovenox 100 mg subcu > Chest x-ray negative > Echo 02/05/19 shows ejection fraction 55 to 60%. no focal wall motion abnormalities. > CXR: no acute process -Admit to telemetry -Appreciate cardiology recommendations: Dr. Guadalupe -stress test ordered for today. If significant ischemia noted then patient needs cardiac cath -Aspirin 81 mg p.o. daily -Atorvastatin 80 mg p.o. nightly -Metoprolol tartrate 25 mg p.o. every 12 hours -Imdur 60 mg p.o. daily -Nitroglycerin as needed for -Keep magnesium greater than 2, keep potassium greater than 4 #Seizure disorder > Depakote level 52 on 02/06/19 -Continue Depakote 500 mg p.o. every 12 hours #History of DVT -Continue home Eliquis 5 mg p.o. twice daily #Schizophrenia #Depression -Continue home risperidone 2 mg p.o. daily -Continue home Lexapro 10 mg p.o. daily -Psychiatry consult -Ativan 0.5mg IV Q6hr PRN for anxiety agitation #Left eye stye -Warm compresses -Continue to monitor FENPPX DVTPPX: apixiban GI PPX: none needed Fluids: none Diet: Cardiac Lines: none PT/OT: pending Dispo: back to LVT once above issues resolved 27 minutes spent on this encounter. Discussed with RN, Cardiology, Psychiatry, and patient. > 50% spent on counseling and care coordination. Time of note may not reflect time patient was seen. Subjective Date patient seen: Feb 09, 2019 Constitutional: Denies: chills, diaphoresis, fever, malaise, weakness, other HEENT: Denies: eye pain, blurred vision, tearing, double vision, ear pain, ear discharge, nose pain, nose congestion, throat pain, throat swelling, mouth pain , mouth swelling, other Cardiovascular: Denies: chest pain, edema, irregular heart rate, lightheadedness, palpitations, syncope, other Respiratory: Denies: cough, orthopnea, shortness of breath, SOB with excertion , SOB at rest, sputum, stridor, wheezing, other Gastrointestinal/Abdominal: Denies: abdomen distended, abdominal pain, black stools, tarry stools, blood in stool, constipated, diarrhea, difficulty swallowing, nausea, poor appetite, poor fluid intake, rectal bleeding, vomiting , other Genitourinary: Denies: burning, discharge, frequency, flank pain, hematuria, incontinence, pain, urgency, other Neurologic/Psychiatric: Denies: anxiety, depressed, emotional problems, headache, numbness, paresthesia, pre-existing deficit, seizure, tingling, tremors, weakness, other Endocrine: Denies: excessive sweating, flushing, intolerance to cold, intolerance to heat, increased hunger, increased thirst, increased urine, unexplained weight gain, unexplained weight loss, other Hematologic/Lymphatic: Denies: anemia, easy bleeding, easy bruising, other Allergies: Coded Allergies: FENTANYL (Unverified Allergy, Unknown, 02/05/19) Subjective No acute events overnight per nursing. Chest pain: Patient denies any chest pain today. He is n.p.o. pending the stress test today. If significant ischemia observed on the test he will be need a cardiac cath per cardiology. He denies any fevers chills cough or shortness of breath Stye: Left eye continues to swelling with some mild drainage today. The patient scratched his eye and part of it was bleeding mildly. He denies any loss of vision blurry vision pain with movement upon eye. Objective Last 24 Hour Vital Signs Date Time Temp Pulse Resp B/P (MAP) Pulse Ox O2 Delivery O2 Flow Rate FiO2 02/09/19 12:00 97.5 49 20 131/84 (100) 97 02/09/19 11:42 55 02/09/19 09:00 113/79 02/09/19 09:00 54 113/79 02/09/19 09:00 Room Air 02/09/19 08:00 97.7 54 18 113/79 (90) 97 02/09/19 07:42 57 02/09/19 04:00 97.8 60 21 130/91 (104) 93 02/09/19 04:00 62 02/09/19 00:00 97.6 83 20 124/88 (100) 95 02/09/19 00:00 75 02/08/19 21:00 Room Air 02/08/19 20:11 91 114/71 02/08/19 20:00 98.7 91 19 114/77 (89) 95 02/08/19 20:00 89 Intake and Output 02/08/19 02/09/19 18:59 06:59 Output Total 600 ml 300 ml Balance -600 ml -300 ml Output Urine Total 600 ml 300 ml # Voids 3 Laboratory Tests 02/09/19 06:39: Sodium Level 144, Potassium Level 4.3, Chloride Level 110H, Carbon Dioxide Level 24, Anion Gap 10, Blood Urea Nitrogen 18, Creatinine 0.8, Estimat Glomerular Filtration Rate > 60, Glucose Level 82, Calcium Level 9.2, Magnesium Level 2.0 Height (Feet): 6 Height (Inches): 3.00 Weight (Pounds): 195 General Appearance: WD/WN, no apparent distress, alert EENT: PERRL/EOMI, other - Left eyelid with some swelling and erythema, mild drainage. With some minimal bleeding. Neck: non-tender, normal alignment, supple Respiratory/Chest: chest wall non-tender, lungs clear, normal breath sounds Abdomen: normal bowel sounds, non tender, soft, no organomegaly, no mass Edema: other - No lower extremity edema bilaterally Neurologic: web marketing assistant II-XII grossly normal, no motor/sensory deficits, alert, oriented x 3 Skin: normal pigmentation, warm/dry Cole-Wollin,Darrell D.O. Feb 09, 2019 16:45
--- NOTE | 2019-02-09 17:15 | NUR ---
NURSE NOTES: Stress test result was made aware to Dr. Guadalupe. Dr. Guadalupe cleared patient per cardiology. Dr. Juarez was made aware.
--- NOTE | 2019-02-09 17:40 | NUR ---
LABOR LAW PROFESSOR NOTES SPOKE WITH EDILBERTO FROM [facility] PT ACCEPTED BACK TO ROOM 200 BED A. PT TO BE SENT IN AM AFTER REPORT HAS BEEN GIVEN. NURSE TO CALL [facility] TO TRANSPORT PT. [place] TEV[place] [phone]
--- NOTE | 2019-02-09 18:30 | NUR ---
NURSE NOTES: Per another healthcare staff member, patient was shouting in the room for a doctor. Doctor Jhonny passed by the room and sat at the nursing station. The primary nurse found a urinal with urine next to Dr. Barry with urine on the floor and desk. Security was called. Patient was given anti-anxiety medication. Charge nurse, rosales made aware and assist with calming patient. Patient was calm after medication was given in 5 minutes. Nursing supervisor ski production made aware.
--- NOTE | 2019-02-09 19:20 | NUR ---
HAND-OFF: Report given to FRANK Zuleta. Endorsed about patient aggressive attempt to throw item to Dr. Barry. In addition, planned discharge tomorrow to [facility]. Endorsed to verify discharge order again tomorrow morning.
--- NOTE | 2019-02-09 19:30 | NUR ---
NURSE NOTES: Received patient from Clark MARIE. Patient in bed, on room air, no signs of respiratory distress. Bed in low position, locked, bed alarm on, call light within reach. Patient is awake and confused. Continues to ask the same question. Scratching left eye. Dressing on. Instructed patient to not scratch the eye.
[2019-02-09 20:13] VITALS: BP 113/79
[2019-02-09] MEDS: Atorvastatin 80mg tab ORAL SCH (20:23)
--- NOTE | 2019-02-09 21:00 | NUR ---
NURSE NOTES: Changed dressing on left eye and applied antibiotics.
[2019-02-10] VITALS: BP 99/54
[2019-02-10] MEDS: LORazepam Inj 2mg/ml 1ml IV PRN (01:50)
[2019-02-10 04:00] VITALS: BP 109/72
--- NOTE | 2019-02-10 07:15 | NUR ---
NURSE NOTES: I received the patient awake and resting in bed. Patient was alert to name and place. Patient did not display any signs of distress or SOB. Bed in the lowest position and call light within reach. I will continue to monitor the patient and implement care.
--- NOTE | 2019-02-10 07:43 | NUR ---
HAND-OFF: Report given to Ryanne MARIE. Plan of care endorsed.
[2019-02-10 08:00] VITALS: BP 104/67
[2019-02-10] MEDS: Metoprolol 25mg tab ORAL SCH (09:00)
[2019-02-10] MEDS: Imdur 30mg tab ORAL SCH (09:00)
[2019-02-10] MEDS: Eliquis 5mg tablet ORAL SCH (09:31)
[2019-02-10] MEDS: Aspirin EC 325mg tab ORAL SCH (09:32)
[2019-02-10] MEDS: Docusate 100mg cap ORAL SCH (09:32)
[2019-02-10] MEDS: Depakote 500mg tab ORAL SCH (09:32)
[2019-02-10 09:37] VITALS: BP 108/70
[2019-02-10] MEDS: Erythromycin Opth Ointment 3.5gm LEFT EYE SCH (09:42)
--- NOTE | 2019-02-10 11:20 | Discharge Summary ---
Discharge Summary Hospital Course Date of Admission Feb 05, 2019 at 11:49 Date of Discharge Feb 10, 2019 Admitting Diagnosis CHEST PAIN HPI Armen SanchezJr is a 53 year old male who was admitted on Feb 05, 2019 at 11:49 for Chest Pain Consultations Cardiology Procedures myocardial stress test Hospital Course 53-year-old male with a past medical history of CAD status post CABG, tobacco use, history of DVT, who presents with NSTEMI. #NSTEMI. Troponin peaked 2.3. Now downtrending and was seen by cardiology Dr. Vallecillo. > Status post Plavix 300 mg x 1 and Lovenox 100 mg subcutaneous > Chest x-ray negative > Echo 02/05/19 shows ejection fraction 55 to 60%. no focal wall motion abnormalities. > CXR: no acute process -Aspirin 81 mg p.o. daily -Atorvastatin 80 mg p.o. nightly -Metoprolol tartrate 25 mg p.o. every 12 hours -Imdur 60 mg p.o. daily -Nitroglycerin as needed for -Keep magnesium greater than 2, keep potassium greater than 4 - Stress test was completed and no inducible ischemia was noted and no indication to complete cardiac cath at this time per cardiology recommendation. Case was discussed with Dr. Godinez today. #Seizure disorder > Depakote level 52 on 02/06/19 -Continue Depakote 500 mg p.o. every 12 hours #History of DVT -Continue home Eliquis 5 mg p.o. twice daily #Schizophrenia #Depression -Continue home risperidone 2 mg p.o. daily -Continue home Lexapro 10 mg p.o. daily -Psychiatry consult -Ativan 0.5mg IV Q6hr PRN for anxiety agitation #Left eye stye -Warm compresses, erythromycin was started as ointment and patch ordered to avoid scratching. Discharge Medications New Medications: Aspirin* (Aspir-Clemencia*) 325 Mg Tablet.dr 325 MG ORAL DAILY for 30 Days, #30 TAB Erythromycin Base (Erythromycin*) 3.5 Gm Oint...g. 1 APPLIC LEFT EYE QID for 7 Days, #30 GM Continued Medications: Acetaminophen* (Acetaminophen 325MG Tablet*) 325 Mg Tablet 650 MG ORAL Q6H PRN for MILD PAIN/TEMP > 101F MDD 3 GM, TAB (This prescription has been renewed) Apixaban (Eliquis) 5 Mg Tablet 5 MG ORAL BID for 30 Days, #60 TAB 2 Refills Atorvastatin Calcium* (Lipitor*) 80 Mg Tablet 80 MG ORAL BEDTIME, TAB (This prescription has been renewed) Bisacodyl (Dulcolax) 10 Mg Supp.rect 10 MG RC DAILY PRN for Constipation, SUPP IF MILK OF MAGNESIA IS INEFFECTIVE Divalproex Sodium (Depakote) 500 Mg Tablet.dr 500 MG ORAL EVERY 12 HOURS for 30 Days, #60 TAB 2 Refills Docusate Sodium* (Docusate Sodium*) 100 Mg Capsule 100 MG ORAL DAILY, CAP HOLD FOR IF W/ DIARRHEA Escitalopram Oxalate* (Lexapro*) 10 Mg Tablet 10 MG ORAL DAILY for DEPRESSION, TAB (This prescription has been renewed) Folic Acid* (Folic Acid*) 1 Mg Tablet 1 MG ORAL DAILY, TAB (This prescription has been renewed) Isosorbide Mononitrate (Isosorbide Mononitrate Er) 60 Mg Tab.er.24h 60 MG PO DAILY, TAB HOLD FOR SBP<110, DBP<60, HR<60 Magnesium Hydroxide* (Milk Of Magnesia*) 400 Mg/5 Ml Oral.susp 30 ML ORAL DAILY PRN for Constipation, ML Metoprolol Succinate* (Metoprolol Succinate*) 50 Mg Tab.er.24h 50 MG ORAL DAILY for hypertension, TAB HOLD FOR SBP<110, DBP<60, HR<60 Multivitamins* (Multivitamins*) 1 Each Tablet 1 TAB ORAL DAILY, TAB 0 Refills (This prescription has been renewed) Risperidone* (Risperdal*) 1 Mg Tablet 2 MG ORAL BEDTIME for 30 Days, #30 TAB 2 Refills Tramadol Hcl* (Ultram*) 50 Mg Tablet 50 MG ORAL Q8HR PRN for MODERATE TO SEVERE PAIN, #12 TAB 0 Refills Discontinued Medications: Amlodipine Besylate* (Amlodipine Besylate*) 5 Mg Tablet 5 MG ORAL DAILY for HYPERTENSION, TAB HOLD FOR SBP<110, DBP<60, HR<60 Hydrochlorothiazide* (Hydrochlorothiazide*) 25 Mg Tablet 25 MG ORAL DAILY, TAB HOLD FOR SBP<110, DBP<60, HR<60 Lisinopril (Lisinopril*) 20 Mg Tablet 20 MG ORAL DAILY, TAB HOLD FOR SBP<110, DBP<60, HR<60 Discharge Condition Upon Discharge: improving Discharge Disposition Patient was discharged to [facility] senior living facility Discharge Diagnoses: (1) NSTEMI (non-ST elevated myocardial infarction) (2) CAD (coronary artery disease) (3) Schizophrenia (4) HTN (hypertension) (5) History of DVT (deep vein thrombosis) (6) Hx of CABG Maximilinao Gonzalez MD Feb 10, 2019 11:20
[2019-02-10 12:00] VITALS: BP 108/72
--- NOTE | 2019-02-10 13:15 | NUR ---
NURSE NOTES: Patient discharged in stable in condition. Report given to Lisa at [facility]. Patient's IV removed and the IV site did not display any signs of redness or bleeding. Patient was transported via ambulance. Report and patient packet given to ambulance personnel. Patient is stable condition upon discharge.
--- NOTE | 2019-02-10 13:30 | Cardiology Report ---
APPROVED REPORT EKG Measurement Heart [id number] Sinus bradycardia Possible Lateral infarct, age undetermined Inferior infarct, age undetermined Abnormal ECG
--- NOTE | 2019-02-10 13:33 | Cardiology Report ---
APPROVED REPORT EKG Measurement Heart [id number] Poor data quality, interpretation may be adversely affected Sinus bradycardia Inferior infarct, age undetermined Abnormal ECG
--- NOTE | 2019-02-12 13:51 | Cardiology Report ---
APPROVED REPORT EKG Measurement Heart [id number] Sinus bradycardia Inferior infarct, age undetermined Abnormal ECG
== END 2019-02-10 14:00 | DRG 190 ==
LOC: EDBD 11:01 → EDUNIT# 11:39 → EMR 11:39 → INTOOBSV 11:49 → OBSVTOIN 11:49 → 2E 11:49 → EDBEDREQ 13:12 → 2E 14:08
DX: I21.4 Non-ST elevation (NSTEMI) myocardial infarction (principal); I10 Essential (primary) hypertension; I25.10 Atherosclerotic heart disease of native coronary artery without angina pectoris; Z86.718 Personal history of other venous thrombosis and embolism; F20.9 Schizophrenia, unspecified; Z91.19 Patient's noncompliance with other medical treatment and regimen; I69.354 Hemiplegia and hemiparesis following cerebral infarction affecting left non-dominant side; Z95.1 Presence of aortocoronary bypass graft; G40.909 Epilepsy, unspecified, not intractable, without status epilepticus; F32.9 Major depressive disorder, single episode, unspecified; H00.016 Hordeolum externum left eye, unspecified eyelid; Z79.01 Long term (current) use of anticoagulants; Z88.6 Allergy status to analgesic agent
CPT/HCPCS: 36415; 71045; 78452; 80048; 80053; 80061; 80164; 82550; 82553; 83690; 83735; 83880; 84100; 84484; 85025; 85610; 85730; 87081; 93005; 93017; 93306; 96360; 96372; 99291; J7030; J8499